=== PATIENT | male | born 1930 | race Two or more races ===

== ENCOUNTER 2016-04-25 19:28 | Inpatient (IN) | payer MEDICAID ==
[2016-04-25] MEDS ORDERED: Midazolam 1mg/ml 2 ml vial IV ONE ×2 (20:42→20:44)
[2016-04-25] MEDS ORDERED: Midazolam 1mg/ml 2 ml vial IV STA (20:51)
[2016-04-25] MEDS ORDERED: Sodium Chloride 0.9% 1,000 ML IV ONE ×3 (20:52→22:28)
--- NOTE | 2016-04-25 20:55 | ED Physician Chart ---
Chief Complaint/HPI - Patient Information Date Seen:: 04/25/16 Time Seen:: 20:53 Chief Complaint:: sob History of Present Illness:: [place] for sob and chest congestion/cough. [place] [facility] [place] my initial encounter and unable to determine if orineted due to sev sob/extremis. plans made for immediate intubation due to severe instability. bp 70 systolic. sao2 los 80-90s Allergies:: Allergies Allergy/AdvReac Type Severity Reaction Status Date / Time No Known Allergies Allergy Verified 12/09/15 13:56 Historian:: Medical Records Review:: Transfer documents Reviewed, Patient unable to respond Review of Systems - Review of Systems General/Constitutional: No fever, Other (pt in extremis...unable to obtain more detailed ros data at this time) Pulmonary: SOB, Cough, Sputum GI: No vomiting, No diarrhea G/U: No hematuria Neurological: Confusion Past Medical History - Past Medical History Past Medical History: Dementia, Other (pneumonia hx, anemia) Social History: Care Facility Surgical History: PEG/GTube Medication: Reviewed Family Medical History - Family Member Mother History Unknown: Yes Physical Exam - Physical Examination Other Gen/Cons comments:: severe distress. sev sob, not responding to noxious stiimuli or verbal ques. moves all extremities somewhat purposefully. gurgling chest noise aduible across room. Head: Atraumatic Eyes: Lids, conjuctiva normal, PERRL, EOMI Skin: Nl inspection, No rash, No skin lesions, No ecchymosis, Well hydrated, No lymphadenopathy ENMT: External ears, nose nl, Nasal exam nl, Lips, teeth, gums nl Neck: Nontender, Full ROM w/o pain, No JVD, No nuchal rigidity, No bruit, No mass, No stridor Other Respiratory comments:: audible congested in severe distress. Cardio Vascular: RRR, No murmur, gallop, rubs, NL S1 S2 GI: No tenderness/rebounding/guarding, No organomegaly, No hernia, Normal BS's, Nondistended, No mass/bruits, No McBurney tenderness Other GI comments:: g-tube site ok : No CVA tenderness Extremities: No tenderness or effusion, Full ROM, normal strength in all extremities, No edema, Normal digits & nails Neuro/Psych: Normal motor strength Other Neuro/Psych comments:: gross nrml mvt of extremities. not responsive due to sev resp distress. Misc: normal gait, Normal back, No paraspinal tenderness Labs/Radiology/EKG Results - Lab Results Results: Laboratory Tests 04/25/16 04/25/16 04/25/16 20:15 20:15 20:15 WBC 6.7 D RBC 3.97 Hgb 10.8 L Hct 33.4 L D MCV 84.0 MCH 27.1 MCHC Differential 32.3 RDW 18.0 Plt Count 120 L D MPV 16.5 Band Neutrophils % 10 Neutrophils (Manual) 69 Lymphocytes 12 L Monocytes 5 Eosinophils 4 Platelet Estimate ADEQUATE Platelet Morphology GIANT PLATELETS SEEN RBC Morph Micro Appear NORMAL Sodium 166 H* D Potassium 3.7 Chloride 128 H Carbon Dioxide 28.6 Anion Gap 13.1 BUN 112 H* Creatinine 3.1 H Est GFR ( Amer) TNP Est GFR (Non-Af Amer) TNP BUN/Creatinine Ratio 36.1 Glucose 241 H Whole Bld Lactic Acid 1.86 Calcium 8.1 L Total Bilirubin 0.6 AST 57 H ALT 33 Alkaline Phosphatase 125 H Troponin I Total Protein 8.5 H Albumin 2.9 L Globulin 5.6 Albumin/Globulin Ratio 0.5 L 04/25/16 20:15 WBC RBC Hgb Hct MCV MCH MCHC Differential RDW Plt Count MPV Band Neutrophils % Neutrophils (Manual) Lymphocytes Monocytes Eosinophils Platelet Estimate Platelet Morphology RBC Morph Micro Appear Sodium Potassium Chloride Carbon Dioxide Anion Gap BUN Creatinine Est GFR ( Amer) Est GFR (Non-Af Amer) BUN/Creatinine Ratio Glucose Whole Bld Lactic Acid Calcium Total Bilirubin AST ALT Alkaline Phosphatase Troponin I 0.10 H* D Total Protein Albumin Globulin Albumin/Globulin Ratio - Radiology Results Results: cxr- ett ok very near juan antonio. ca aorta, some infiltrate at rt mid/base lung - EKG Interpretations EKG Time:: 22:00 Rhythm: nsr 85 [place]: -19 Rate: 85 Comments:: nsr, wnl..no st/t wave changes Assessment - Assessment Critical Care Time: 80 Excludes all billable procedures: Yes This condition life threatening/high prob of deterioration: Yes - Procedures Procedures:: intubation for sev resp distress- 7.5 ett suction applied to peg tube prior to premedication. versed 1 mg for agitation/resistance passed ett by direct laryngoscopy w 4 mac blade w good visualization of epiglottis. placement confirmed by auscultation, co2 return and sao2 improvement. cxr ok at 9;05p no emesis witnessed. mouth mucosa noted very dry. Informed Consent: Procedure/risk/benefits explained by MD: No ED Septic Shock - . Is Septic Shock (SBP<90, OR Lactate>4 mmol\L) present?: Yes - <6hrs of presentation: Vital Signs: bp low 70s, sao2 low 70-80s Assessment of Lungs: Rhonchi Assessment of Heart: RRR EKG Interpretation: NSR, No ST elevation, No ST depression, No Ectopy Capillary refill evaluation: Capillary refill < 2 secs Skin Exam: Dry Comment: pt intubated due to extreme distress. Reassessment (Disposition) - Reassessment Reassessment:: case dw Dr Weiss(seasoner Dr lutz) briefly who says this pt belongs to Dr Wilson...prior record show 2 admits by him. case D/W Dr Gipson who says this is NOT his Primary pt and he says on-call should admit dw Dr Weiss will admit (10;20p) Reassessment Condition:: Improved - Diagnosis Diagnosis:: 1 pneumonia 2 sepsis 3 dehydration 4 elevated troponin - Patient Disposition Admitted to:: ICU Condition at Disposition:: Improved
[2016-04-25 20:56] LABS: HEMOGLOBIN 10.8 gm/dL (12.6-17.4); MEAN CORPUSCULAR HEMOGLOBIN 27.1 pg (27.0-31.0); MEAN CORPUSCULAR HGB CONC 32.3 pg (28.0-36.0); MEAN PLATELET VOLUME 16.5 fl; RED BLOOD COUNT 3.97 Mil/cmm (3.80-5.80)
[2016-04-25 21:01] LABS: ALB/GLOB RATIO 0.5 (1.0-1.8); ALKALINE PHOSPHATASE 125 U/L (34-104); ANION GAP 13.1 (7.0-16.0); BILIRUBIN,TOTAL 0.6 mg/dL (0.3-1.0); BUN/CREATININE RATIO 36.1; CALCIUM SERUM 8.1 mg/dL (8.6-10.3); CARBON DIOXIDE 28.6 mEq/L (21.0-31.0); CHLORIDE 128 mEq/L (98-107); CREATININE - SERUM 3.1 mg/dL (0.7-1.3); GLUCOSE 241 mg/dL (70-105); POTASSIUM SERUM 3.7 mEq/L (3.5-5.1); SGOT 57 U/L (13-39); SGPT/ALT 33 U/L (7-52)
[2016-04-25] MEDS ORDERED: Albuterol/Ipratropium Neb 3 ML AERS HHN ONE ×2 (21:09→22:06)
[2016-04-25] MEDS ORDERED: Levofloxacin 500mg/100mL 500 MG/100 ML BAG IV ONE ×2 (21:10→21:29)
[2016-04-25 21:18] LABS: SODIUM SERUM 166 mEq/L (136-145)
[2016-04-25 21:19] LABS: BUN - UREA NITROGEN 112 mg/dL (7-25)
[2016-04-25 21:23] LABS: HEMATOCRIT 33.4 % (39.0-49.0); PLATELET COUNT 120 Th/cmm (150-400); WHITE BLOOD COUNT 6.7 Th/cmm (4.8-10.8)
[2016-04-25 21:29] LABS: BAND NEUTROPHILE 10 % (0-10); EOSINOPHIL 4 % (0-5); NEUTROPHILS 69 % (40-80); PLATELET ESTIMATE ADEQUATE (NORMAL); PLATELET MORPHOLOGY GIANT PLATELETS SEEN (NORMAL); TOTAL CELLS COUNTED 100
[2016-04-25 22:08] LABS: URINE BILIRUBIN NEGATIVE (NEGATIVE); URINE BLOOD NEGATIVE (NEGATIVE); URINE COLOR ORANGE; URINE GLUCOSE (UA) NEGATIVE (NEGATIVE); URINE KETONE 15 mg/dL (NEGATIVE); URINE PROTEIN 30 mg/dL (NEGATIVE)
[2016-04-25 22:09] LABS: URINE AMORPHOUS SEDIMENT MODERATE URATES (NONE SEEN); URINE BACTERIA FEW /hpf (NONE SEEN); URINE EPITHELIAL CELLS FEW /lpf (FEW); URINE RBC 0-2 /hpf (0-5); URINE URIC ACID CRYSTALS FEW /hpf (NONE SEEN)
[2016-04-25 22:23] LABS: ABG SOURCE ARTERIAL; BE(B) 4.8 mmol/L (-3.0-3.0); HCO3 31.6 mmol/L (20.0-26.0); pH 7.36 (7.35-7.45)
[2016-04-25 22:24] LABS: ALLEN TEST Positive; FIO2 100; MECH RATE 12; MECH VT 500
[2016-04-25] MEDS ORDERED: D5-0.45NS 1,000 ML IV SCH (22:30)
[2016-04-26 00:20] VITALS: BP 100/46
[2016-04-26] MEDS ORDERED: Albuterol/Ipratropium Neb 3 ML AERS HHN SCH (01:00)
[2016-04-26] MEDS ORDERED: Piperacillin Sodium/Tazobact 2.25 gm Vial IV ONE (01:24)
[2016-04-26 05:16] LABS: ABG SOURCE ARTERIAL; ALLEN TEST Positive; BE(B) 3.8 mmol/L (-3.0-3.0); FIO2 60; HCO3 29.2 mmol/L (20.0-26.0); MECH RATE 14; MECH VT 500; pH 7.41 (7.35-7.45)
[2016-04-26 07:00] LABS: % BASOPHILS 0.1 % (0.0-2.0); % EOSINOPHILS 4.8 % (0.0-5.0); % LYMPHOCYTES 11.2 % (20.0-50.0); % MONOCYTES 3.5 % (2.0-10.0); % NEUTROPHILS 80.4 % (40.0-80.0); HEMOGLOBIN 9.2 gm/dL (12.6-17.4); MEAN CELL VOLUME 85.1 fl (80-99); MEAN CORPUSCULAR HEMOGLOBIN 27.4 pg (27.0-31.0); MEAN CORPUSCULAR HGB CONC 32.2 pg (28.0-36.0); MEAN PLATELET VOLUME 14.5 fl; NEUTROPHILE ABSOLUTE 5.5 Th/cmm (1.8-8.0); RED BLOOD COUNT 3.35 Mil/cmm (3.80-5.80); WHITE BLOOD COUNT 6.8 Th/cmm (4.8-10.8)
[2016-04-26 07:12] LABS: INR 1.02 (0.5-1.4); PROTHROMBIN TIME (TEST) 10.1 SECONDS (9.5-11.5)
[2016-04-26 07:14] LABS: HEMATOCRIT 28.5 % (39.0-49.0)
[2016-04-26 07:18] LABS: ALB/GLOB RATIO 0.6 (1.0-1.8); ALKALINE PHOSPHATASE 102 U/L (34-104); ANION GAP 12.8 (7.0-16.0); BILIRUBIN,TOTAL 0.6 mg/dL (0.3-1.0); BUN/CREATININE RATIO 37.2; CALCIUM SERUM 7.6 mg/dL (8.6-10.3); CHLORIDE 129 mEq/L (98-107); CREATININE - SERUM 2.9 mg/dL (0.7-1.3); GLUCOSE 154 mg/dL (70-105); POTASSIUM SERUM 3.8 mEq/L (3.5-5.1); SGOT 62 U/L (13-39); SGPT/ALT 33 U/L (7-52)
[2016-04-26 07:42] LABS: SODIUM SERUM 167 mEq/L (136-145)
[2016-04-26 07:43] LABS: BUN - UREA NITROGEN 108 mg/dL (7-25)
[2016-04-26 08:05] LABS: PLATELET COUNT 96 Th/cmm (150-400)
[2016-04-26] MEDS: INSULIN ASPART SLIDING SCALE 100 UNITS/ML UNIT SUBQ SCH ×4 (08:15→21:30)
[2016-04-26] MEDS: Dextrose 5% 1,000 ML IV SCH ×2 (09:15→22:37)
[2016-04-26] MEDS ORDERED: Sodium Chloride 0.9% 1,000 ML IV ONE (09:16)
[2016-04-26] MEDS: Enoxaparin 30 mg/0.3 mL 0.3mL Syr SUBQ SCH (09:19)
--- NOTE | 2016-04-26 09:41 | Diagnostic Imaging Report ---
CHEST X-RAY: AP view INDICATION: Congestion COMPARISON: Chest x-ray 12/14/2015 FINDINGS: ET tube is seen with tip just above the juan antonio point towards the right mainstem bronchus. Low lung volumes are seen with left effusion and left lung infiltrates. Heart size cannot be well assessed. Atherosclerosis is noted. IMPRESSION: ET tube just above the juan antonio pointing toward the right mainstem bronchus. Recommend pullback Low lung volumes with left effusion and left lung infiltrates. Please refer to follow-up x-ray for further details.
[2016-04-26] MEDS ORDERED: VTE Chemical Prophylaxis Screen/Admission MC PRN (09:55)
[2016-04-26] MEDS: Albumin 5% 12.5gm/250mL 12.5 GM/250 ML BTL IV ONE ×2 (10:30→15:00)
[2016-04-26 10:47] LABS: PLATELET COUNT-DIC PANEL 96 Th/cmm (150-400)
--- NOTE | 2016-04-26 11:14 | Diagnostic Imaging Report ---
CHEST X-RAY: AP view INDICATION: Pneumonia COMPARISON: Chest x-ray 04/25/2016 FINDINGS: ET tube is again seen at the level of the juan antonio pointing toward the right mainstem bronchus. Low lung bones are seen with left effusion and left lung infiltrates. IMPRESSION: Unchanged position of the ET tube at the level of the juan antonio pointing toward the right mainstem bronchus. Recommend 2 to 3 cm pullback. Left effusion and left lung infiltrates. Results were administered into made to the referring team on 04/26/2016 at 9:30 AM.
--- NOTE | 2016-04-26 11:18 | History & Physical ---
PATIENT IDENTIFICATION: An 85-year-old male. HISTORY SOURCE: Reviewing the chart, talking to the Emergency Room Servando CHIEF COMPLAINT: Brought in to the Emergency Room for cough, congestion, and respiratory distress. HISTORY OF PRESENT ILLNESS: An 85-year-old [place] male who is a resident of [facility] has a diagnosis of dementia, history of gastrostomy tube placement with severe, dysphagia, history of CVA, history of osteoarthritis. The patient had previous admissions at [facility] for a diagnosis of GI bleed, pneumonia, and dehydration. The patient has been treated in the past for his underlying illness. He was brought into the Emergency Room by paramedics for evaluation of cough, congestion and shortness of breath. When the patient arrived in the Emergency Room, he was diagnosed to have hyponatremia, acute respiratory distress with significant hypotension. The patient was resuscitated, intubated and admitted to the hospital for further treatment. The patient does not provide any history due to his current conditions along with his medical history. PAST MEDICAL HISTORY: Remarkable for: 1. Peripheral vascular disease. 2. Anemia. 3. Dementia. 4. Gastrostomy tube placement for dysphagia. 5. History of recurrent pneumonia. 6. Hypertension. MEDICATIONS AT HOME: Taking iron tablets and ferrous sulfate. ALLERGIES: The patient is not allergic to any medications. SOCIAL HISTORY: [facility] a [facility]. FAMILY MEDICAL HISTORY: Unavailable. REVIEW OF SYSTEMS: Unable to obtain. PHYSICAL EXAMINATION: GENERAL: The patient is alert, lying in the bed, responds to painful stimuli, open his eyes upon evaluation. VITAL SIGNS: Currently, temperature 97.0, pulse 68, respiratory rate 16, blood pressure is reported currently 105/58. In the Emergency Room upon arrival, systolic was 70 and after hydration, it went up to 90s. HEENT: Normocephalic, atraumatic. Bilateral conjunctival congestion noted. Oropharynx is dry and coated. Endotracheal tube noted. Poor oral hygiene noted. No facial asymmetry. NECK: Supple, no JVD or lymphadenopathy. HEART: Both heart sounds are regular. CHEST AND LUNGS: Equal in expansion with expiratory wheezing throughout. ABDOMEN: Soft. No guarding, no rigidity. Gastrostomy tube noted. Bowel sounds are present. EXTREMITIES: Contracture of upper and lower extremities noted. Deep tissue injury and stage II pressure ulcers on the foot noted. NEUROLOGIC: Alert, awake and does not follow any commands. AVAILABLE DIAGNOSTIC DATA: Performed in the Emergency Room remarkable for troponin of 0.1. Urinalysis remarkable for ketones, so positive at 1.03, protein of 30, wbc ____. White count of 6.7, hemoglobin 10.8, platelet count of 120, 12% ____. Sodium 166, potassium 3.7, chloride 128, CO2 28.6, BUN and creatinine is ____ and 3.1, blood sugar of 241, alkaline phosphatase of 125, lactic acid of 1.86. D-dimer of 3810. ABG, pH of 7.36, pCO2 of ____, pO2 of 69, O2 sat of 93% on assist control mode. Chest x-ray has an infiltrate on the right lower lobe. EKG, no ST-T changes representing acute ischemia. CLINICAL IMPRESSION: 1. Hypernatremia secondary to dehydration. 2. Acute respiratory failure, required endotracheal intervention and mechanical ventilation. 3. Most likely aspiration versus penitentiary acquired pneumonia. 4. Acute kidney injury. 5. Dementia. 6. Severe dysphagia required gastrostomy tube placement. 7. Hypotension, most likely secondary to volume depletion. 8. 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 9. Protein calorie malnutrition. 10. ICU care. PLAN: 1. Admit this patient to ICU. 2. Aggressive hydration. 3. Pulmonary consultation. 4. Nephrology consultation 5. ID consultations. 6. Broad spectrum antibiotic. 7. Blood cultures, sputum Gram stain C and S. 8. DIC panel. 9. GI and DVT prophylaxis 10. Follow up labs. 11. Free water. 12. D5W to correct hypernatremia. 13. Follow up x-rays and lab. 14. Wait for followup results and give appropriate treatment. 15. Follow audit consultant recommendations. 16. Wound care nurse to see the patient for deep tissue injuries and stage II ulcers on the feet. 17. Obtain lower extremity arterial Doppler studies to assess the arterial status. 18. The patient does have slightly elevated troponin, so obtain cardiac enzymes and EKG as well. 19. Tube feeding. 20. Overall prognosis is guarded. Care plan has been reviewed and discussed with RN as well. JOB# [id number]
[2016-04-26] MEDS ORDERED: Albumin 5% 12.5gm/250mL 12.5 GM/250 ML BTL IV ONE ×2 (11:30→14:00)
--- NOTE | 2016-04-26 11:38 | Diagnostic Imaging Report ---
Renal ultrasound HISTORY: Renal failure COMPARISON: Abdomen ultrasound on 05/06/2015 Technique: Sonography of the kidneys and urinary bladder was performed in multiple planes. FINDINGS: Exam is limited due to body habitus. The right kidney measures 10.3 x 8.1 cm. A right renal cyst is seen at the midpole measuring 4.2 cm. No hydronephrosis. The left kidney measures 10.5 x 6.2 cm. An inferior pole left renal cyst is noted measuring 3.9 cm. No hydronephrosis. The urinary bladder is not visualized and may be collapsed. The prostate gland was also not visualized. IMPRESSION: Limited exam due to body habitus No evidence of hydronephrosis. Bilateral renal cysts.
--- NOTE | 2016-04-26 11:41 | Diagnostic Imaging Report ---
Bilateral lower extremity arterial Doppler study HISTORY: Peripheral vascular disease COMPARISON: None Technique: Longitudinal and transverse sonographic images of the bilateral lower extremity arteries were obtained with doppler analysis. FINDINGS: Exam of the right side demonstrates diffuse atherosclerotic vascular disease. There is triphasic waveform within the right common femoral, right proximal and mid superficial femoral arteries. There is biphasic waveform of the right distal superficial femoral artery. There is monophasic waveform of the right popliteal, tibialis anterior, and tibialis posterior artery. The right dorsalis pedis artery was not visualized. Right ankle-brachial index is 1.1. Exam of the left side demonstrates diffuse atherosclerotic vascular disease. There is triphasic waveform within the left common femoral, left proximal and mid superficial femoral arteries. There is biphasic waveform within the left distal superficial femoral artery, popliteal artery, tibialis anterior and tibialis posterior arteries. The left dorsalis pedis is not visualized. Left ankle-brachial index is 1.1. IMPRESSION: Findings hr representative of diffuse generalized atherosclerotic vascular disease, greatest distally. There is nonvisualization of the bilateral dorsalis pedis arteries. Please correlate clinically. If indicated CT angiography of the lower extremities may also be obtained.
--- NOTE | 2016-04-26 14:30 | Infectious Disease Prog Note ---
Infectious Disease Subjective - Review of Systems Service Date: 04/26/16 Subjective: [id number] Infectious Disease Objective - Results Result Diagrams: 04/26/16 06:44 04/26/16 06:44 Recent Labs: Laboratory Last Values WBC 6.8 Th/cmm (4.8-10.8) 04/26/16 06:44 RBC 3.35 Mil/cmm (3.80-5.80) L 04/26/16 06:44 Hgb 9.2 gm/dL (12.6-17.4) L 04/26/16 06:44 Hct 28.5 % (39.0-49.0) L D 04/26/16 06:44 MCV 85.1 fl (80-99) 04/26/16 06:44 MCH 27.4 pg (27.0-31.0) 04/26/16 06:44 MCHC Differential 32.2 pg (28.0-36.0) 04/26/16 06:44 RDW 18.0 % (11.5-20.0) 04/26/16 06:44 Plt Count 96 Th/cmm (150-400) L 04/26/16 06:44 MPV 14.5 fl 04/26/16 06:44 Neutrophils % 80.4 % (40.0-80.0) H 04/26/16 06:44 Band Neutrophils % 10 % (0-10) 04/25/16 20:15 Lymphocytes % 11.2 % (20.0-50.0) L 04/26/16 06:44 Monocytes % 3.5 % (2.0-10.0) 04/26/16 06:44 Eosinophils % 4.8 % (0.0-5.0) 04/26/16 06:44 Basophils % 0.1 % (0.0-2.0) 04/26/16 06:44 Neutrophils (Manual) 69 % (40-80) 04/25/16 20:15 Lymphocytes 12 % (20-50) L 04/25/16 20:15 Monocytes 5 % (2-10) 04/25/16 20:15 Eosinophils 4 % (0-5) 04/25/16 20:15 Platelet Estimate ADEQUATE (NORMAL) 04/25/16 20:15 Platelet Morphology GIANT PLATELETS SEEN (NORMAL) 04/25/16 20:15 RBC Morph Micro Appear NORMAL (NORMAL) 04/25/16 20:15 Plt Count 96 Th/cmm (150-400) L 04/26/16 06:44 PT 10.1 SECONDS (9.5-11.5) 04/26/16 06:44 INR 1.02 (0.5-1.4) 04/26/16 06:44 PTT (Actin FS) 27.2 SECONDS (26.0-38.0) 04/26/16 06:44 Fibrinogen 464.0 mg/dL (200.0-400.0) H 04/26/16 06:44 D-Dimer > 5000 ng/mL (100-400) H 04/26/16 06:44 Specimen Source ARTERIAL 04/26/16 04:52 Sample Site RB 04/26/16 04:52 pH 7.41 (7.35-7.45) 04/26/16 04:52 pCO2 46.0 mmHg (35.0-45.0) H 04/26/16 04:52 pO2 141.0 mmHg (80.0-100.0) H 04/26/16 04:52 HCO3 29.2 mmol/L (20.0-26.0) H 04/26/16 04:52 Base Excess 3.8 mmol/L (-3.0-3.0) H 04/26/16 04:52 O2 Saturation 99.0 % (92.0-100.0) 04/26/16 04:52 Paul Test Positive 04/26/16 04:52 Vent Rate 14 04/26/16 04:52 Inspired O2 60 04/26/16 04:52 Tidal Volume 500 04/26/16 04:52 PEEP 0 04/26/16 04:52 Pressure (ins/psv/peep) N/A 04/26/16 04:52 Critical Value MMIRANDA 04/26/16 04:52 Sodium 167 mEq/L (136-145) H* 04/26/16 06:44 Potassium 3.8 mEq/L (3.5-5.1) 04/26/16 06:44 Chloride 129 mEq/L (98-107) H 04/26/16 06:44 Carbon Dioxide 29.0 mEq/L (21.0-31.0) 04/26/16 06:44 Anion Gap 12.8 (7.0-16.0) 04/26/16 06:44 BUN 108 mg/dL (7-25) H* 04/26/16 06:44 Creatinine 2.9 mg/dL (0.7-1.3) H 04/26/16 06:44 Est GFR ( Amer) TNP 04/26/16 06:44 Est GFR (Non-Af Amer) TNP 04/26/16 06:44 BUN/Creatinine Ratio 37.2 04/26/16 06:44 Glucose 154 mg/dL (70-105) H 04/26/16 06:44 POC Glucose 121 MG/DL (70 - 105) H 04/26/16 07:08 Hemoglobin A1c % 6.0 % (4.0-6.0) 04/25/16 20:15 Whole Bld Lactic Acid 1.86 mmol/L (0.60-2.00) 04/25/16 20:15 Calcium 7.6 mg/dL (8.6-10.3) L 04/26/16 06:44 Magnesium 3.0 mg/dL (1.9-2.7) H 04/26/16 06:44 Total Bilirubin 0.6 mg/dL (0.3-1.0) 04/26/16 06:44 AST 62 U/L (13-39) H 04/26/16 06:44 ALT 33 U/L (7-52) 04/26/16 06:44 Alkaline Phosphatase 102 U/L (34-104) 04/26/16 06:44 Troponin I 0.09 ng/mL (0.01-0.05) H* 04/26/16 06:44 Total Protein 7.5 gm/dL (6.0-8.3) 04/26/16 06:44 Albumin 2.7 gm/dL (4.2-5.5) L 04/26/16 06:44 Globulin 4.8 gm/dL 04/26/16 06:44 Albumin/Globulin Ratio 0.6 (1.0-1.8) L 04/26/16 06:44 Urine Source CATH 04/25/16 20:55 Urine Color ORANGE 04/25/16 20:55 Urine Clarity HAZY (CLEAR) 04/25/16 20:55 Urine pH 5.0 04/25/16 20:55 Ur Specific [place] 1.89566 (1.005-1.030) H 04/25/16 20:55 Urine Protein 30 mg/dL (NEGATIVE) H 04/25/16 20:55 Urine Glucose (UA) NEGATIVE mg/dL (NEGATIVE) 04/25/16 20:55 Urine Ketones 15 mg/dL (NEGATIVE) H 04/25/16 20:55 Urine Blood NEGATIVE (NEGATIVE) 04/25/16 20:55 Urine Nitrate NEGATIVE (NEGATIVE) 04/25/16 20:55 Urine Bilirubin NEGATIVE (NEGATIVE) 04/25/16 20:55 Urine Urobilinogen 1.0 E.U./dL (0.2 - 1.0) 04/25/16 20:55 Ur Leukocyte Esterase NEGATIVE (NEGATIVE) 04/25/16 20:55 Urine RBC 0-2 /hpf (0-5) H 04/25/16 20:55 Urine WBC 2-5 /hpf (0-5) H 04/25/16 20:55 Ur Epithelial Cells FEW /lpf (FEW) 04/25/16 20:55 Uric Acid Crystals FEW /hpf (NONE SEEN) 04/25/16 20:55 Amorphous Sediment MODERATE URATES (NONE SEEN) 04/25/16 20:55 Urine Bacteria FEW /hpf (NONE SEEN) 04/25/16 20:55 - Physical Exam Vitals and I&O: Vital Signs Temp 97.0 F 04/26/16 07:49 Pulse 73 04/26/16 13:32 Resp 16 04/26/16 07:49 BP 91/46 04/26/16 07:49 Pulse Ox 100 04/26/16 13:32 Intake & Output 04/25/16 04/26/16 04/26/16 18:59 06:59 18:59 Intake Total 380 50 Output Total 150 Balance 230 50 Weight (lbs) 72.121 kg Intake: Intake, IV Amount 380 50 Piperacillin Sodium/ 50 50 Tazobact 2.25 gm In Sodium Chloride 0.9% 50 ml @ 100 mls/hr IV Q8HR [facility] Rx#:[id number] Oral 0 Tube Feeding 0 Output: Urine 150 Other: # Bowel Movements 2 Stool Characteristics Brown Active Medications: Current Medications Albuterol/Ipratropium (Duoneb Neb) 3 ml HHN Q2H PRN PRN Reason: Respiratory Distress Stop: 06/24/16 22:45 Enoxaparin Sodium (Lovenox) 30 mg SUBQ DAILY JJ Stop: 06/25/16 08:59 Last Admin: 04/26/16 09:19 Dose: 30 mg Piperacillin Sod/Tazobactam (Sod 2.25 gm/ Sodium Chloride) 50 mls @ 100 mls/hr IV Q8HR JJ Stop: 06/25/16 04:59 Last Infusion: 04/26/16 12:40 Dose: Infused Dextrose (D5w) 1,000 mls @ 100 mls/hr IV .Q10H JJ Stop: 06/25/16 08:44 Last Admin: 04/26/16 09:15 Dose: 100 mls/hr Albumin Human (Albutein 5%) 12.5 gm in 250 mls @ 62.5 mls/hr IV X1 ONE Stop: 04/26/16 15:29 Last Admin: 04/26/16 11:59 Dose: Not Given Albumin Human (Albutein 5%) 12.5 gm in 250 mls @ 62.5 mls/hr IV Q8H [facility] Stop: 04/27/16 07:00 Insulin Aspart (Novolog Insulin Sliding Scale) 0 units SUBQ ACHS JJ PRN Reason: Protocol Stop: 06/25/16 07:29 Last Admin: 04/26/16 08:15 Dose: Not Given Lorazepam (Ativan) 2 mg IVP Q4HR PRN; Protocol PRN Reason: Agitation Stop: 06/24/16 22:38 Miscellaneous (Clinical Monitoring) 1 [facility] PRN PRN PRN Reason: RENAL DOSING Stop: 06/25/16 07:52 Miscellaneous (Vte Chemical Prophylaxis Screen/ Admission) 1 [facility] PRN PRN PRN Reason: PROTOCOL Stop: 06/25/16 09:54 Pantoprazole Sodium (Protonix) 40 mg IVP DAILY JJ Stop: 06/25/16 08:59 Last Admin: 04/26/16 09:10 Dose: 40 mg - Procedures Procedures: Procedures Procedure Code Date BLOOD TRANSFUSION SERVICE 15008 05/04/15 TRANSFUSE NONAUT RED BLOOD CELLS IN PERIPH VEIN, PERC 04907W1 05/04/15 Infectious Disease Assmt/Plan - Problem List Patient Problems: All Active Problems Anemia (Acute) D64.9 Dehydration (Acute) E86.0 Hyperosmolality and hypernatremia (Acute) E87.0
[2016-04-26] MEDS: Albumin 5% 12.5gm/250mL 12.5 GM/250 ML BTL IV SCH (15:00)
--- NOTE | 2016-04-26 15:22 | Diagnostic Imaging Report ---
CHEST X-RAY: AP view INDICATION: Intubation COMPARISON: Chest x-ray earlier the same day at 8:12 AM FINDINGS: ET tube is been pulled back with tip 1.8 cm above the Annamarie. Left effusion is seen with hazy left lung infiltrates and low lung volumes. IMPRESSION: Interval retraction of the ET-tube with tip now 1.8 cm above the Annamarie. Left effusion and hazy left lung infiltrates.
[2016-04-26] MEDS ORDERED: Albumin 5% 12.5gm/250mL 12.5 GM/250 ML BTL IV SCH (19:30)
--- NOTE | 2016-04-26 21:19 | Consultation ---
LOCATION: [facility], ICU bed #6. ATTENDING PHYSICIAN: Dr. Tod Weiss. I thank you very much Dr. Weiss for the consultation. IDENTIFICATION: The patient is intubated, history has been taken from the old chart and the Emergency Room physician notes and by reviewing the correction record. HISTORY OF PRESENT ILLNESS: This is an 85-year-old male patient who is resident of correction of [facility]. The patient is a known care of CVA with dysphagia, history of hypertension and anemia. The patient is getting feeding though G-tube. The patient was brought in with complaint of respiratory distress. The patient in the Emergency Room developed respiratory failure and required intubation. The patient subsequently was found to have pneumonia, sepsis, dehydration and acute renal failure. The patient has been transferred to ICU. Renal consultation has been requested. Since the patient has been here, he is tolerating tube feeding well. There is no history of vomiting, constipation or diarrhea. The patient does have some wound on the left lower extremity with some dressing. The patient's Mitchell catheter has been placed in with very dark-colored urine. G-tube has no residual volume. There is no history of any seizures, no history of high fever, no history of syncope, no history of anuria or hematuria. No history of palpitation or severe prolonged hypotension. PAST MEDICAL AND SURGICAL HISTORY: As stated above. History of peripheral vascular disease, anemia, G-tube placement, dysphagia, CVA, probable CKD baseline, now the patient has pneumonia and respiratory failure. PHYSICAL EXAMINATION: GENERAL: This is an 85-year-old male patient on a respirator. VITAL SIGNS: Blood pressure 91/46, heart rate 68, respiration rate 16 and blood pressure 91/46. The patient's total intake so far since last night is 1330. Urine output is 150. HEENT: Head is normocephalic and atraumatic. Eyes: Sclerae is nonicteric. Conjunctivae is pale. Pupils are reactive. NECK: Jugular venous pressure nondistended. LUNGS: Good air entry. Rhonchi and rales both the sides. Right side more than the left. HEART: Regular. ____ fifth intercostal space. ABDOMEN: Soft. G-tube site is without any bleeding or discharge. Bowel sounds are present and not distended. EXTREMITIES: No edema. Skin is dry. Dorsalis pedis diminished on both the sides. Left foot in a dressing for the wound. SIGNIFICANT LABORATORY DATA: WBC 6.7, hemoglobin 10.8 and 10 bands. A pH 7.3, pCO2 of 56, pO2 of 69, bicarbonate of 31, sodium 166, potassium 3.7, chloride 128, CO2 of 28, BUN 112, creatinine 3.1, blood sugar 241 and calcium 8.1. AST 57. Urinalysis: A pH 1.03. Urine nitrite negative, few bacteria and no cast. IMAGING STUDIES: Chest x-ray done yesterday, left pleural effusion and left lung infiltrate. No pneumothorax. No CHF. ET tube present. ASSESSMENT: 1. This 85-year-old male patient with acute kidney injury. 2. Water deficit. 3. Anemia. 4. Peripheral vascular disease. 5. Hypotension. 6. G-tube. 7. History of CVA with dysphagia. 8. Rule out CKD underlying water deficit, anemia. 9. Hyperglycemia. 10. Respiratory failure. 11. Pneumonia. 12. Elevated LFT. PLAN: Start the patient on water in a G-tube, albumin IV for hypotension, continue D5 half normal saline IV, check CMP, phosphorous and magnesium. Tomorrow morning kidney ultrasound has been ordered. The patient is currently undergoing arterial Doppler of lower extremities. Adjust the antibiotic dose for renal failure. I will follow this patient with you very closely. JOB# [id number]
--- NOTE | 2016-04-26 22:13 | Consultation ---
REFERRING PHYSICIAN: Dr. Weiss. REASON FOR CONSULTATION: Sepsis. HISTORY OF PRESENT ILLNESS: The patient is an 85-year-old male with a past medical history of dementia, pneumonia, anemia, G-tube placement for dysphagia, history of CVA with aphasia, history of osteoarthritis, brought to the ER for cough, congestion and respiratory distress. On initial evaluation, the patient's temperature was 98.9 degrees Fahrenheit and WBC count is 6700. The patient's blood pressure was on lower side, 84/48. Fluid boluses were given and patient was found to be in acute respiratory distress also. The patient was intubated in the ER and put on ventilator support. The patient is alert and awake. The patient was started on Zosyn and Levaquin yesterday and ID consult was called for further antibiotic management. The patient remains hypotensive. PAST MEDICAL HISTORY: Includes peripheral vascular disease, anemia, dementia, dysphagia, G-tube placement, history of recurrent pneumonia, ____, CVA. ALLERGIES: NKDA. MEDICATIONS: See medication reconciliation sheet. Antibiotic lao, the patient is on Zosyn and Levaquin. SOCIAL HISTORY: The patient lives at nursing facility. No history of smoking, alcohol or drug use. FAMILY HISTORY: Not available. REVIEW OF SYSTEMS: Unable to obtain, but so far, the patient has no fever, no chills. The patient had a cough and congestion with hypotension with respiratory distress requiring intubation and ventilator support. PHYSICAL EXAMINATION: CURRENT VITAL SIGNS: Shows temperature is 97 degrees Fahrenheit, pulse 73, respirations 16, blood pressure is 91/46. GENERAL: The patient is comfortable, lying in the bed. Intubated orally on the ventilator support. HEENT: Head is normocephalic, atraumatic. Oral cavity moist. [place] tongue. Eyes: Pallor is present, no icterus. Pupils PERRLA, EOMI. NECK: Supple, no JVD, no carotid bruit. Trachea in midline. CHEST: Bilateral breath sounds. No crackles, no wheezing. HEART: S1, S2 within normal limits. Regular rhythm. No murmur, no gallop. ABDOMEN: Soft, nontender, nondistended. Bowel sounds present. PEG site is clear. EXTREMITIES: No cyanosis, no clubbing, no edema. ____ present. NEUROLOGIC: Alert and awake. Follows the commands. LABORATORY DATA: Current lab shows WBC count is 6800, hemoglobin 9.2, hematocrit 28.5, platelets are 96,000, neutrophils 80%. Sodium is 167, potassium 3.8, chloride 129, bicarb is 29, BUN is 108, creatinine 2.9, glucose is 154. Troponin 0.09. Urinalysis showed rbc's 0-2, wbc's 2-5 and bacteria are few. IMPRESSION: 1.Hypotension, suspect sepsis. 2.Suspect pneumonia. 3.Acute renal failure likely secondary to dehydration. 4.Increased respiratory failure, on ventilator. 5.Anemia. 6.Dementia. 7.Cerebrovascular accident. 8.Hypernatremia. 9.Thrombocytopenia. 10.Foot ulcers. 11.Protein calorie malnutrition. 12.Contracture of lower extremity. RECOMMENDATIONS: Continue Zosyn, monitor platelet count tomorrow. If platelet count drops further, we will change antibiotic to cefepime or antibiotic depending on the available culture reports. Follow up sepsis workup. Thank you, Dr. Weiss, for involving me in taking care of this patient. JOB# [id number]
[2016-04-27] MEDS: Albumin 5% 12.5gm/250mL 12.5 GM/250 ML BTL IV SCH ×2 (00:09→08:35)
--- NOTE | 2016-04-27 00:30 | Admit Criteria Form ---
Admit Criteria Forms - Admit Criteria Diagnosis: RESPIRATORY FAILURE [facility] Clinical Indications for Admission to Inpatient Care (Place 'X' for any and all applicable criteria): Hospital admission is needed for appropriate care of the patient because of acute respiratory failure or insufficiency as indicated by ANY ONE of the following(1)(2)(3)(4)(5)(6)(7)(8): [ X]I. Mechanical ventilation needed (acute invasive or noninvasive) [ ]II. Severe ventilation deficit as indicated by ANY ONE of the following (9) [ ]a) Respiratory acidosis (pH less than 7.32 and partial pressure of carbon dioxide greater than 40 mm Hg (5.3 kPa)) [ ]b) Partial pressure of carbon dioxide greater than 44 mm Hg (5.9 kPa ) (new) [ ]c) Airflow measurements less than 25% of predicted (eg, peak expiratory flow rate less than 100 L/minute) [ ]d) Forced vital capacity less than 15 mL/kg of ideal body weight, or 50% decrease in vital capacity from baseline [ ]III. Noncardiac pulmonary edema not resolving with rapid emergency treatment (8) [ ]IV. Severe respiratory distress as indicated by ANY ONE of the following: [ ]a) Severe tachypnea (respiratory rate greater than 30, greater than 45 for 6-month-old, greater than 60 for ) [ ]b) Severe hypoxemia (partial pressure of oxygen less than 50 mm Hg ( 6.7 kPa) on greater than 50% oxygen or partial pressure of oxygen to FIO2 ratio less than 200) [ ]c) Mental status deterioration from respiratory disease [ ]V. Airway obstruction or inadequate protection [A](10)(11) The original [email or web address] content created by [email or web address] has been revised. The portions of the content which have been revised are identified through the use of italic text or in bold, and [email or web address] has neither reviewed nor approved the modified material. All other unmodified content is copyright [email or web address]. Please see references footnoted in the original [employer] edition 2016 Admit Criteria Met?: Yes
[2016-04-27 05:07] LABS: MEAN CELL VOLUME 83.6 fl (80-99); MEAN CORPUSCULAR HEMOGLOBIN 27.3 pg (27.0-31.0); MEAN CORPUSCULAR HGB CONC 32.6 pg (28.0-36.0); MEAN PLATELET VOLUME 11.3 fl; RED BLOOD COUNT 2.85 Mil/cmm (3.80-5.80); RED CELL DISTRIBUTION WIDTH 17.9 % (11.5-20.0); WHITE BLOOD COUNT 4.4 Th/cmm (4.8-10.8)
[2016-04-27 05:47] LABS: ALB/GLOB RATIO 0.7 (1.0-1.8); ALKALINE PHOSPHATASE 82 U/L (34-104); ANION GAP 12.7 (7.0-16.0); BILIRUBIN,TOTAL 0.7 mg/dL (0.3-1.0); BUN/CREATININE RATIO 38.8; CALCIUM SERUM 7.1 mg/dL (8.6-10.3); CARBON DIOXIDE 23.9 mEq/L (21.0-31.0); CHLORIDE 125 mEq/L (98-107); CREATININE - SERUM 2.6 mg/dL (0.7-1.3); GLUCOSE 121 mg/dL (70-105); POTASSIUM SERUM 3.6 mEq/L (3.5-5.1); SGOT 58 U/L (13-39); SGPT/ALT 30 U/L (7-52)
[2016-04-27 05:49] LABS: ALB/GLOB RATIO 0.7 (1.0-1.8); BILIRUBIN,DIRECT 0.27 mg/dL (0.0-0.2); BILIRUBIN,TOTAL 0.7 mg/dL (0.3-1.0); MAGNESIUM 2.7 mg/dL (1.9-2.7); PHOSPHOROUS 3.7 mg/dL (2.5-5.0)
[2016-04-27 05:50] LABS: BUN - UREA NITROGEN 101 mg/dL (7-25); SODIUM SERUM 158 mEq/L (136-145)
[2016-04-27 06:02] LABS: BAND NEUTROPHILE 8 % (0-10); EOSINOPHIL 2 % (0-5); NEUTROPHILS 64 % (40-80); TOTAL CELLS COUNTED 100
[2016-04-27 06:04] LABS: ANISOCYTOSIS 1+
[2016-04-27 06:21] LABS: PLATELET ESTIMATE DECREASED PLATELETS (NORMAL); PLATELET MORPHOLOGY GIANT PLATELETS SEEN (NORMAL)
[2016-04-27 06:22] LABS: PLATELET COUNT 83 Th/cmm (150-400)
[2016-04-27 06:23] LABS: HEMOGLOBIN 7.8 gm/dL (12.6-17.4)
[2016-04-27 06:24] LABS: HEMATOCRIT 23.9 % (39.0-49.0)
[2016-04-27] MEDS: Albuterol/Ipratropium Neb 3 ML AERS HHN PRN ×2 (07:41→15:35)
--- NOTE | 2016-04-27 07:59 | Consultation ---
REASON FOR CONSULTATION: Help with pneumonia with respiratory failure. CONSULT NOTE: This is an 85-year-old gentleman who was living in local convalescent home with significant medical issues including issue of diagnosis of dementia, previous history of CVA, G-tube, dysphagia, aphasia, and apparently, the patient basically was brought in up here because of coughing, chest congestion, and severe respiratory distress. Subsequently, the patient was diagnosed to have acute respiratory failure with ____ and also electrolyte . The patient was resuscitated, intubated, and subsequently, I was asked to see this patient for further care and necessary treatment. Unfortunately, meaningful detailed history from the patient is not available as the patient is quite demented and currently intubated. PAST MEDICAL HISTORY: Dementia, dysphagia, history of CVA, history of previous pneumonia, history of electrolyte imbalance, and history of anemia. Current medication is iron sulfate as well as G-tube feeding. ALLERGIC HISTORY: Nil. Other history is very limited at this particular time. PHYSICAL EXAMINATION: GENERAL: This is an elderly looking gentleman, opens eyes, not in acute respiratory distress, currently on a ventilator with assist control mode of ventilator. VITAL SIGNS: The patient's current recorded vital signs, temperature is 98.6, blood pressure is ____, respirations 14, saturation 100% on 40% of oxygen by volume ventilator. HEENT: Examination of the head is essentially unremarkable. Pupils appear to be equal and reacting to light. Conjunctivae are slightly pallor. Oral cavity shows endotracheal tube with poor dental hygiene. Tongue is dry. NECK: No nodes in the neck could be palpated. CHEST: Shows occasional rhonchi with secretory noise bilaterally. HEART: Regular and tachycardic. ABDOMEN: Shows G-tube, otherwise soft and nontender. EXTREMITIES: Show significant contractures of both the lower extremity. LABORATORY DATA: The patient's chest x-ray shows endotracheal tube just above juan antonio, and there is infiltrate in the left upper lobe. The patient's white count is 6.7, hemoglobin 10.8, and platelet count is 96,000. ABG done on 60% of oxygen this morning, pO2 is 141 with 60% of oxygen assist control mode of ventilator. IMPRESSION: 1. The patient has acute respiratory failure. Most likely, this is related to pneumonia. 2. Severe dehydration with renal failure, prerenal azotemia. PLANS AND SUGGESTIONS: We will go ahead and get aggressive panculture. We will ____ IV antibiotic per ID. We will stabilize electrolytes and decrease FIO2. We may start weaning once the electrolytes are much better, etc., and go from there. Thank you very much. We will be glad to follow along with you. JOB# [id number]
[2016-04-27] MEDS ORDERED: Probiotic Screen MC PRN (08:30)
[2016-04-27] MEDS: Enoxaparin 30 mg/0.3 mL 0.3mL Syr SUBQ SCH (08:37)
[2016-04-27 09:26] LABS: INR 1.03 (0.5-1.4); PROTHROMBIN TIME (TEST) 10.2 SECONDS (9.5-11.5)
[2016-04-27 09:28] LABS: ABG SOURCE Arterial; ALLEN TEST YES; BE(B) 2.2 mmol/L (-3.0-3.0); FIO2 40; HCO3 26.5 mmol/L (20.0-26.0); MECH RATE 12; MECH VT 500; PS 12; pH 7.44 (7.35-7.45)
[2016-04-27] MEDS: Dextrose 5% 1,000 ML IV SCH ×2 (09:52→20:08)
--- NOTE | 2016-04-27 11:15 | Diagnostic Imaging Report ---
Portable chest x-ray HISTORY: Pneumonia Compared with prior exam of 04/26/2016, increasing infiltrate is noted within the left lung along with the slight increase in the left pleural effusion. An endotracheal tube tip is approximately 2.0 cm above the juan antonio. IMPRESSION: 1. Increasing infiltrate within the left lung along with an increase in a left pleural effusion.
[2016-04-27] MEDS: Lactobacillus Rhamnosus 10 Billion CFU Capsule PO SCH (12:31)
[2016-04-27] MEDS: Therahoney Gel 42.5gm Tube TP SCH (12:35)
[2016-04-27] MEDS: INSULIN ASPART SLIDING SCALE 100 UNITS/ML UNIT SUBQ SCH ×3 (14:06→20:08)
--- NOTE | 2016-04-28 02:54 | Progress Notes ---
PROBLEM LIST: 1.Acute respiratory failure. 2.Extensive pneumonia, left side. 3.Severe dehydration with renal azotemia. 4.Suspect obstructive sleep apnea syndrome with significant ____. SYMPTOMS: The patient appears to be responding to verbal stimuli, but no communication could be done and the patient is not in any acute respiratory distress with SMV of 12. PHYSICAL EXAMINATION: VITAL SIGNS: Heart rate is 70, blood pressure is 98/55, saturation 99% on 40% of oxygen. NECK: Veins could not be visualized. CHEST: Shows occasional rhonchi with generalized diminished air entry, mostly in the left base. HEART: Regular. ABDOMEN: Slightly distended. EXTREMITIES: Shows contractures and flexion of both the lower extremities. LABORATORY DATA: The patient's CBC: White count is 4.4, hemoglobin 9.8 and platelet estimation is decreased and patient's chest x-ray shows still infiltrate on the left mid lung area and ABG shows pO2 of 82 with SMV of 12 on 40% of oxygen with ____ support. Electrolytes are slightly decrease in sodium as well as BUN and creatinine. ASSESSMENT: 1.The patient clinically seemingly improving with acute respiratory failure. 2.Extensive pneumonia. 3.Severe dehydration with possibly obstructive sleep apnea syndrome. PLANS AND SUGGESTIONS: We will go ahead and continue current treatment. We will decrease backup rate, follow up electrolytes again tomorrow to see how it is and go from there. JOB# [id number]
[2016-04-28 05:40] LABS: ALB/GLOB RATIO 0.7 (1.0-1.8); ALKALINE PHOSPHATASE 105 U/L (34-104); ANION GAP 9.1 (7.0-16.0); BILIRUBIN,TOTAL 0.9 mg/dL (0.3-1.0); BUN/CREATININE RATIO 36.3; CALCIUM SERUM 7.4 mg/dL (8.6-10.3); CARBON DIOXIDE 25.9 mEq/L (21.0-31.0); CHLORIDE 118 mEq/L (98-107); CREATININE - SERUM 2.4 mg/dL (0.7-1.3); GLUCOSE 147 mg/dL (70-105); MAGNESIUM 2.7 mg/dL (1.9-2.7); SGOT 59 U/L (13-39); SGPT/ALT 36 U/L (7-52); SODIUM SERUM 149 mEq/L (136-145)
[2016-04-28 06:08] LABS: MEAN CELL VOLUME 82.5 fl (80-99); MEAN CORPUSCULAR HEMOGLOBIN 27.4 pg (27.0-31.0); MEAN CORPUSCULAR HGB CONC 33.3 pg (28.0-36.0); MEAN PLATELET VOLUME 14.7 fl; PLATELET COUNT 80 Th/cmm (150-400); RED CELL DISTRIBUTION WIDTH 17.2 % (11.5-20.0); WHITE BLOOD COUNT 3.8 Th/cmm (4.8-10.8)
[2016-04-28 06:12] LABS: BUN - UREA NITROGEN 87 mg/dL (7-25)
[2016-04-28 06:14] LABS: HEMATOCRIT 23.9 % (39.0-49.0)
[2016-04-28] MEDS: INSULIN ASPART SLIDING SCALE 100 UNITS/ML UNIT SUBQ SCH ×4 (06:32→20:40)
[2016-04-28] MEDS: Albuterol/Ipratropium Neb 3 ML AERS HHN PRN ×2 (07:28→16:15)
[2016-04-28 08:32] LABS: ANISOCYTOSIS 1+; BAND NEUTROPHILE 6 % (0-10); EOSINOPHIL 4 % (0-5); NEUTROPHILS 63 % (40-80); PLATELET ESTIMATE DECREASED PLATELETS (NORMAL); PLATELET MORPHOLOGY GIANT PLATELETS SEEN (NORMAL); TOTAL CELLS COUNTED 100
[2016-04-28 09:02] LABS: ABG SOURCE Arterial; BE(B) -0.2 mmol/L (-3.0-3.0); HCO3 24.8 mmol/L (20.0-26.0); pH 7.39 (7.35-7.45)
[2016-04-28 09:03] LABS: ALLEN TEST YES; FIO2 40; MECH RATE 6; MECH VT 500; PS 12
[2016-04-28] MEDS: Enoxaparin 30 mg/0.3 mL 0.3mL Syr SUBQ SCH (09:31)
[2016-04-28] MEDS: Lactobacillus Rhamnosus 10 Billion CFU Capsule PO SCH (09:32)
[2016-04-28] MEDS: Therahoney Gel 42.5gm Tube TP SCH (09:32)
[2016-04-28] MEDS: Dextrose 5% 1,000 ML IV SCH ×2 (09:36→20:32)
--- NOTE | 2016-04-28 11:05 | Diagnostic Imaging Report ---
Portable chest x-ray HISTORY: Pneumonia Compared with the prior exam of 04/27/2016, persistent diffuse infiltrates seen in the left lung. Evidence of a left pleural effusion. The endotracheal tube tip is approximately 1.5 cm above the juan anotnio. IMPRESSION: 1. Little change in the pulmonary status as noted above.
[2016-04-28] MEDS: Chlorhexidine Gluconate 0.12% 15mL Mouthwash MM SCH (20:37)
--- NOTE | 2016-04-28 20:39 | Infectious Disease Prog Note ---
Infectious Disease Subjective - Review of Systems Service Date: 04/28/16 Subjective: Improving gradually. Intubated orally, on vent support, weaning protocol on. Infectious Disease Objective - Results Result Diagrams: 04/28/16 04:36 04/28/16 04:36 Recent Labs: Laboratory Last Values WBC 3.8 Th/cmm (4.8-10.8) L 04/28/16 04:36 RBC 2.90 Mil/cmm (3.80-5.80) L 04/28/16 04:36 Hgb 8.0 gm/dL (12.6-17.4) L 04/28/16 04:36 Hct 23.9 % (39.0-49.0) L* 04/28/16 04:36 MCV 82.5 fl (80-99) 04/28/16 04:36 MCH 27.4 pg (27.0-31.0) 04/28/16 04:36 MCHC Differential 33.3 pg (28.0-36.0) 04/28/16 04:36 RDW 17.2 % (11.5-20.0) 04/28/16 04:36 Plt Count 80 Th/cmm (150-400) L 04/28/16 04:36 MPV 14.7 fl 04/28/16 04:36 Neutrophils % 80.4 % (40.0-80.0) H 04/26/16 06:44 Band Neutrophils % 6 % (0-10) 04/28/16 04:36 Lymphocytes % 11.2 % (20.0-50.0) L 04/26/16 06:44 Monocytes % 3.5 % (2.0-10.0) 04/26/16 06:44 Eosinophils % 4.8 % (0.0-5.0) 04/26/16 06:44 Basophils % 0.1 % (0.0-2.0) 04/26/16 06:44 Neutrophils (Manual) 63 % (40-80) 04/28/16 04:36 Lymphocytes 20 % (20-50) 04/28/16 04:36 Monocytes 6 % (2-10) 04/28/16 04:36 Eosinophils 4 % (0-5) 04/28/16 04:36 Atypical Lymphocytes 1 % 04/28/16 04:36 Platelet Estimate DECREASED PLATELETS (NORMAL) 04/28/16 04:36 Platelet Morphology GIANT PLATELETS SEEN (NORMAL) 04/28/16 04:36 Anisocytosis 1+ 04/28/16 04:36 RBC Morph Micro Appear ABNORMAL (NORMAL) 04/28/16 04:36 Plt Count 83 Th/cmm (150-400) L 04/27/16 04:38 PT 10.2 SECONDS (9.5-11.5) 04/27/16 04:38 INR 1.03 (0.5-1.4) 04/27/16 04:38 PTT (Actin FS) 36.4 SECONDS (26.0-38.0) 04/27/16 04:38 Fibrinogen 483.0 mg/dL (200.0-400.0) H 04/27/16 04:38 D-Dimer 3960 ng/mL (100-400) H 04/27/16 04:38 Specimen Source Arterial 04/28/16 08:45 Sample Site Right Radial 04/28/16 08:45 pH 7.39 (7.35-7.45) 04/28/16 08:45 pCO2 41.0 mmHg (35.0-45.0) 04/28/16 08:45 pO2 87.0 mmHg (80.0-100.0) 04/28/16 08:45 HCO3 24.8 mmol/L (20.0-26.0) 04/28/16 08:45 Base Excess -0.2 mmol/L (-3.0-3.0) 04/28/16 08:45 O2 Saturation 97.0 % (92.0-100.0) 04/28/16 08:45 Paul Test YES 04/28/16 08:45 Vent Rate 6 04/28/16 08:45 Inspired O2 40 04/28/16 08:45 Tidal Volume 500 04/28/16 08:45 PEEP 0 04/28/16 08:45 Pressure (ins/psv/peep) 12 04/28/16 08:45 Critical Value E.ANGELES 04/28/16 08:45 Sodium 149 mEq/L (136-145) H 04/28/16 04:36 Potassium 4.0 mEq/L (3.5-5.1) 04/28/16 04:36 Chloride 118 mEq/L (98-107) H 04/28/16 04:36 Carbon Dioxide 25.9 mEq/L (21.0-31.0) 04/28/16 04:36 Anion Gap 9.1 (7.0-16.0) 04/28/16 04:36 BUN 87 mg/dL (7-25) H* 04/28/16 04:36 Creatinine 2.4 mg/dL (0.7-1.3) H 04/28/16 04:36 Est GFR ( Amer) TNP 04/28/16 04:36 Est GFR (Non-Af Amer) TNP 04/28/16 04:36 BUN/Creatinine Ratio 36.3 04/28/16 04:36 Glucose 147 mg/dL (70-105) H 04/28/16 04:36 POC Glucose 113 MG/DL (70 - 105) H 04/28/16 17:30 Hemoglobin A1c % 6.0 % (4.0-6.0) 04/25/16 20:15 Whole Bld Lactic Acid 1.86 mmol/L (0.60-2.00) 04/25/16 20:15 Calcium 7.4 mg/dL (8.6-10.3) L 04/28/16 04:36 Phosphorus 3.7 mg/dL (2.5-5.0) 04/27/16 04:38 Magnesium 2.7 mg/dL (1.9-2.7) 04/28/16 04:36 Total Bilirubin 0.9 mg/dL (0.3-1.0) 04/28/16 04:36 Direct Bilirubin 0.27 mg/dL (0.0-0.2) H 04/27/16 04:38 AST 59 U/L (13-39) H 04/28/16 04:36 ALT 36 U/L (7-52) 04/28/16 04:36 Alkaline Phosphatase 105 U/L (34-104) H 04/28/16 04:36 Troponin I 0.07 ng/mL (0.01-0.05) H* D 04/26/16 15:00 Total Protein 6.7 gm/dL (6.0-8.3) 04/28/16 04:36 Albumin 2.7 gm/dL (4.2-5.5) L 04/28/16 04:36 Globulin 4.0 gm/dL 04/28/16 04:36 Albumin/Globulin Ratio 0.7 (1.0-1.8) L 04/28/16 04:36 TSH 3.66 uIU/ml (0.34-5.60) 04/27/16 04:38 Urine Source CATH 04/25/16 20:55 Urine Color ORANGE 04/25/16 20:55 Urine Clarity HAZY (CLEAR) 04/25/16 20:55 Urine pH 5.0 04/25/16 20:55 Ur Specific [place] 1.10583 (1.005-1.030) H 04/25/16 20:55 Urine Protein 30 mg/dL (NEGATIVE) H 04/25/16 20:55 Urine Glucose (UA) NEGATIVE mg/dL (NEGATIVE) 04/25/16 20:55 Urine Ketones 15 mg/dL (NEGATIVE) H 04/25/16 20:55 Urine Blood NEGATIVE (NEGATIVE) 04/25/16 20:55 Urine Nitrate NEGATIVE (NEGATIVE) 04/25/16 20:55 Urine Bilirubin NEGATIVE (NEGATIVE) 04/25/16 20:55 Urine Urobilinogen 1.0 E.U./dL (0.2 - 1.0) 04/25/16 20:55 Ur Leukocyte Esterase NEGATIVE (NEGATIVE) 04/25/16 20:55 Urine RBC 0-2 /hpf (0-5) H 04/25/16 20:55 Urine WBC 2-5 /hpf (0-5) H 04/25/16 20:55 Ur Epithelial Cells FEW /lpf (FEW) 04/25/16 20:55 Uric Acid Crystals FEW /hpf (NONE SEEN) 04/25/16 20:55 Amorphous Sediment MODERATE URATES (NONE SEEN) 04/25/16 20:55 Urine Bacteria FEW /hpf (NONE SEEN) 04/25/16 20:55 Random Vancomycin 10.8 ug/mL (5.0-40.0) 04/28/16 04:36 - Physical Exam Vitals and I&O: Vital Signs Temp 99.0 F 04/28/16 16:00 Pulse 66 04/28/16 19:26 Resp 17 04/28/16 18:00 BP 91/42 04/28/16 18:00 Pulse Ox 99 04/28/16 19:26 Intake & Output 04/28/16 04/28/16 04/29/16 06:59 18:59 06:59 Intake Total 2750 300 1850 Output Total 650 800 Balance 2100 300 1050 Intake: Intake, IV Amount 2100 300 1000 Dextrose 5% 1,000 ml @ 2000 1000 100 mls/hr IV .Q10H [facility] Rx#:[id number] Piperacillin Sodium/ 100 50 Tazobact 2.25 gm In Sodium Chloride 0.9% 50 ml @ 100 mls/hr IV Q8HR [facility] Rx#:[id number] Tube Feeding 650 850 Output: Urine 650 800 Other: # Bowel Movements 3 0 Stool Characteristics Soft Brown Brown Active Medications: Current Medications Albuterol/Ipratropium (Duoneb Neb) 3 ml HHN Q2H PRN PRN Reason: Respiratory Distress Stop: 06/24/16 22:45 Last Admin: 04/28/16 16:15 Dose: 3 ml Chlorhexidine Gluconate (Peridex) 15 ml MM 0800,1999 [facility] Stop: 06/27/16 19:59 Last Admin: 04/28/16 20:37 Dose: 15 ml Enoxaparin Sodium (Lovenox) 30 mg SUBQ DAILY [facility] Stop: 06/25/16 08:59 Last Admin: 04/28/16 09:31 Dose: 30 mg Famotidine (Pepcid) 20 mg IVP Q12H [facility] Stop: 06/26/16 08:59 Last Admin: 04/28/16 09:32 Dose: 20 mg Piperacillin Sod/Tazobactam (Sod 2.25 gm/ Sodium Chloride) 50 mls @ 100 mls/hr IV Q8HR [facility] Stop: 06/25/16 04:59 Last Infusion: 04/28/16 13:03 Dose: Infused Dextrose (D5w) 1,000 mls @ 100 mls/hr IV .Q10H [facility] Stop: 06/25/16 08:44 Last Admin: 04/28/16 20:32 Dose: 100 mls/hr Insulin Aspart (Novolog Insulin Sliding Scale) 0 units SUBQ ACHS JJ PRN Reason: Protocol Stop: 06/25/16 07:29 Last Admin: 04/28/16 17:36 Dose: Not Given Lactobacillus Rhamnosus (Culturelle) 1 each PO DAILY [facility] Stop: 06/26/16 08:59 Last Admin: 04/28/16 09:32 Dose: 1 each Lorazepam (Ativan) 2 mg IVP Q4HR PRN; Protocol PRN Reason: Agitation Stop: 06/24/16 22:38 Miscellaneous (Clinical Monitoring) 1 ea MC PRN PRN PRN Reason: RENAL DOSING Stop: 06/25/16 07:52 Miscellaneous (Vte Chemical Prophylaxis Screen/ Admission) 1 ea MC PRN PRN PRN Reason: PROTOCOL Stop: 06/25/16 09:54 Miscellaneous (Vancomycin Iv Per Pharmacy) 1 ea MC PRN PRN PRN Reason: PROTOCOL Stop: 06/25/16 14:29 Miscellaneous (Probiotic Screen) 1 ea MC PRN PRN PRN Reason: PROTOCOL Stop: 06/26/16 08:29 Wound Care/Dressing Products (Therahoney) 1 appl TP DAILY JJ Stop: 06/26/16 08:59 Last Admin: 04/28/16 09:32 Dose: 1 appl General: no acute distress, well developed, well nourished HEENT: atraumatic, normocephalic, PERRLA, EOMI Neck: supple Cardiovascular: S1S2, regular Lungs: clear to auscultation bilaterally, clear to percussion Abdomen: soft, no tender, no distended, no splenomegaly Extremities: other (foot ulcer b/l.), no cyanosis, no clubbing, no edema - Procedures Procedures: Procedures Procedure Code Date BLOOD TRANSFUSION SERVICE 80906 05/04/15 INSERT EMERGENCY AIRWAY 75787 04/25/16 INSERTION OF ENDOTRACHEAL AIRWAY INTO [place]ACHEA, VIA OPENING [id number] 04/25/16 RESPIRATORY VENTILATION, 24-96 CONSECUTIVE HOURS [id number] 04/25/16 TRANSFUSE NONAUT RED BLOOD CELLS IN PERIPH VEIN, PERC [id number] 05/04/15 VENT MGMT INPAT INIT DAY 00804 04/25/16 VENT MGMT INPAT SUBQ DAY 07606 04/25/16 Infectious Disease Assmt/Plan - Problem List Patient Problems: All Active Problems Anemia (Acute) D64.9 Dehydration (Acute) E86.0 Hyperosmolality and hypernatremia (Acute) E87.0 - Assessment Assessment: 1. CN staph sepsis. 2. Hypotension, suspect sepsis. 3. Suspect pneumonia. 4. Acute renal failure likely secondary to dehydration. 5. Increased respiratory failure, on ventilator. 6. Anemia. 7. Dementia. 8. Cerebrovascular accident. 9. Hypernatremia. 10.Thrombocytopenia. 11.Foot ulcers. 12.Protein calorie malnutrition. 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 14. Thrombocytopenia. - Plan Plan: Continue, vanco IV and change zosyn to rocephin. Follow up ct and echo report.
--- NOTE | 2016-04-29 04:05 | Progress Notes ---
PROBLEM LIST: 1.Acute respiratory failure. 2.Extensive pneumonia, left sided. 3.Obstructive sleep apnea syndrome with completely bedridden situation. SYMPTOMS: The patient is a little bit more obtunded, does not open much eyes to verbal stimuli. No respiratory distress. Currently, on SMV ____ setting. PHYSICAL EXAMINATION: VITAL SIGNS: The patient is afebrile, heart rate is in 60s and 70, blood pressure is 96/74, saturation currently on 40% is almost 99% to 97%. NECK: Veins could not be visualized. CHEST: Shows diminished air entry with occasional rhonchi, especially on the left side. HEART: Regular. ABDOMEN: Slightly distended, soft, nontender. EXTREMITIES: Significant contractures. LABORATORY DATA: White count shows 3.8, platelet is 80,000 and the patient's ABG, pO2 is 87 on SMV of 6 with pressor support 12. ASSESSMENT: The patient clinically seemingly improving except for still lot of bronchorrhea associated with some altered state of mind. PLANS AND SUGGESTIONS: We will try to decrease backup rate, repeat chest x-ray. Hopefully, when the patient is more alert and less secretion, we will extubate him and go from there. JOB# [id number]
[2016-04-29 05:56] LABS: ALB/GLOB RATIO 0.6 (1.0-1.8); ALKALINE PHOSPHATASE 97 U/L (34-104); ANION GAP 12.1 (7.0-16.0); BILIRUBIN,TOTAL 0.7 mg/dL (0.3-1.0); BUN - UREA NITROGEN 75 mg/dL (7-25); BUN/CREATININE RATIO 35.7; CALCIUM SERUM 7.4 mg/dL (8.6-10.3); CARBON DIOXIDE 25.9 mEq/L (21.0-31.0); CHLORIDE 115 mEq/L (98-107); CREATININE - SERUM 2.1 mg/dL (0.7-1.3); GLUCOSE 135 mg/dL (70-105); SGOT 49 U/L (13-39); SGPT/ALT 39 U/L (7-52); SODIUM SERUM 149 mEq/L (136-145)
[2016-04-29] MEDS: Dextrose 5% 1,000 ML IV SCH ×2 (06:20→16:27)
[2016-04-29] MEDS: INSULIN ASPART SLIDING SCALE 100 UNITS/ML UNIT SUBQ SCH ×4 (06:50→20:34)
[2016-04-29 07:27] LABS: % BASOPHILS 0.1 % (0.0-2.0); % EOSINOPHILS 3.5 % (0.0-5.0); % LYMPHOCYTES 12.2 % (20.0-50.0); % MONOCYTES 6.6 % (2.0-10.0); % NEUTROPHILS 77.6 % (40.0-80.0); HEMATOCRIT 24.5 % (39.0-49.0); HEMOGLOBIN 8.1 gm/dL (12.6-17.4); MEAN CELL VOLUME 82.8 fl (80-99); MEAN CORPUSCULAR HEMOGLOBIN 27.4 pg (27.0-31.0); MEAN CORPUSCULAR HGB CONC 33.1 pg (28.0-36.0); NEUTROPHILE ABSOLUTE 3.3 Th/cmm (1.8-8.0); PLATELET COUNT 83 Th/cmm (150-400); RED BLOOD COUNT 2.96 Mil/cmm (3.80-5.80); RED CELL DISTRIBUTION WIDTH 17.1 % (11.5-20.0); WHITE BLOOD COUNT 4.2 Th/cmm (4.8-10.8)
[2016-04-29] MEDS: Chlorhexidine Gluconate 0.12% 15mL Mouthwash MM SCH ×2 (08:06→20:33)
[2016-04-29 08:55] LABS: ABG SOURCE Arterial; BE(B) -0.1 mmol/L (-3.0-3.0); CRITICAL VALUES REPORTED BY PW; FIO2 30; HCO3 25.9 mmol/L (20.0-26.0); MECH RATE 4; MECH VT 500; PS 10; pH 7.35 (7.35-7.45)
[2016-04-29] MEDS: Lactobacillus Rhamnosus 10 Billion CFU Capsule PO SCH (09:06)
[2016-04-29] MEDS: Enoxaparin 30 mg/0.3 mL 0.3mL Syr SUBQ SCH (09:08)
[2016-04-29] MEDS: Therahoney Gel 42.5gm Tube TP SCH (09:10)
--- NOTE | 2016-04-29 09:56 | Diagnostic Imaging Report ---
Portable chest x-ray HISTORY: Pneumonia Compared with prior exam of 04/28/2016, no change in diffuse infiltrate throughout the left lung along with evidence of a persistent left pleural effusion. The heart remains enlarged. An endotracheal tube tip is approximately 2.5 cm above the juan antonio. IMPRESSION: 1. No change in the cardiopulmonary status as noted above.
--- NOTE | 2016-04-29 10:23 | Diagnostic Imaging Report ---
CT scan of the chest without intravenous contrast HISTORY: Pain, sepsis Total DLP equals 339 CTDI equals 10.9 Axial sections were obtained from the level above the clavicles down to level below the diaphragm. Endotracheal tube is seen. The heart is enlarged. Severe coronary artery and atherosclerotic vascular calcification is noted. Calcified lymph node seen within the azygos region of the mediastinum consistent with old granulomatous disease. There is extensive parenchymal density within the left internal lesser degree right lower lobe regions consistent with pneumonia and/or atelectasis. Small left pleural effusion. Changes within the left lung result in obscuration of the margins of the left hilum. Degenerative changes noted to the spine. IMPRESSION: 1. Cardiomegaly with evidence of severe coronary artery and after Scottie vascular disease 2. Extensive parenchymal density left lower lobe consistent with atelectasis and/or consolidation. The findings result in obscuration the margins the left hilum and obscuration of the left lower lobe bronchus and to a lesser degree left upper lobe bronchus. Additional infiltrate noted in the right lower lobe 3. Small left pleural effusion 4. Evidence of old granulomatous disease CT scan abdomen and pelvis without intravenous contrast HISTORY: Pain, sepsis Total DLP equals 728 CTDI equals 14.2 Axial sections were obtained from the xiphoid process down to the pubic symphysis. The liver exhibits a homogeneous parenchyma. No focal lesions. Punctate calcification seen within the spleen consistent with old granulomatous disease. No focal abnormality seen within the pancreas. Hypodense intraluminal densities noted in the gallbladder consistent with cholesterol gallstones. Gastrostomy tube is seen. There appears to be an approximate 4.0 cm cyst extending off the upper pole of the right kidney. Detail is limited due to patient motion artifact. An approximate 4.0 cm cyst extends off the posterior cortex of the left kidney. Small calcifications noted in the renal hilar areas consistent with atherosclerotic vascular changes. Additional diffuse severe atherosclerotic changes seen to the abdominal aorta and major branches. An approximate 1.5 cm round density is seen in the retrocrural region adjacent to the left side of the abdominal aorta consistent with a mildly enlarged lymph node. Findings of questionable significance. The pelvis demonstrates preservation of normal fat planes. No abnormal soft tissue masses or abnormal fluid collections. Colonic diverticula noted. Severe degenerative changes noted throughout the spine. Deformity and extensive fragmentation noted about proximal shaft of left femur consistent with old trauma. IMPRESSION: 1. Severe extensive atherosclerotic vascular changes 2. Bilateral renal cysts 3. Diverticulosis 4. Findings consistent with a prominent left retrocrural lymph node of questionable significance. 5. Severe degenerative changes throughout the spine along with chronic changes, deformity and fragmentation about the proximal portion of left femur consistent with old trauma. 6. Small fat-containing left inguinal hernia
--- NOTE | 2016-04-29 22:52 | Infectious Disease Prog Note ---
Infectious Disease Subjective - Review of Systems Service Date: 04/29/16 Subjective: Extubated successfully. on bipap at this time. Infectious Disease Objective - Results Result Diagrams: 04/29/16 07:03 04/29/16 04:44 Recent Labs: Laboratory Last Values WBC 4.2 Th/cmm (4.8-10.8) L 04/29/16 07:03 RBC 2.96 Mil/cmm (3.80-5.80) L 04/29/16 07:03 Hgb 8.1 gm/dL (12.6-17.4) L 04/29/16 07:03 Hct 24.5 % (39.0-49.0) L 04/29/16 07:03 MCV 82.8 fl (80-99) 04/29/16 07:03 MCH 27.4 pg (27.0-31.0) 04/29/16 07:03 MCHC Differential 33.1 pg (28.0-36.0) 04/29/16 07:03 RDW 17.1 % (11.5-20.0) 04/29/16 07:03 Plt Count 83 Th/cmm (150-400) L 04/29/16 07:03 MPV 14.0 fl 04/29/16 07:03 Neutrophils % 77.6 % (40.0-80.0) 04/29/16 07:03 Band Neutrophils % 6 % (0-10) 04/28/16 04:36 Lymphocytes % 12.2 % (20.0-50.0) L 04/29/16 07:03 Monocytes % 6.6 % (2.0-10.0) 04/29/16 07:03 Eosinophils % 3.5 % (0.0-5.0) 04/29/16 07:03 Basophils % 0.1 % (0.0-2.0) 04/29/16 07:03 Neutrophils (Manual) 63 % (40-80) 04/28/16 04:36 Lymphocytes 20 % (20-50) 04/28/16 04:36 Monocytes 6 % (2-10) 04/28/16 04:36 Eosinophils 4 % (0-5) 04/28/16 04:36 Atypical Lymphocytes 1 % 04/28/16 04:36 Platelet Estimate DECREASED PLATELETS (NORMAL) 04/28/16 04:36 Platelet Morphology GIANT PLATELETS SEEN (NORMAL) 04/28/16 04:36 Anisocytosis 1+ 04/28/16 04:36 RBC Morph Micro Appear ABNORMAL (NORMAL) 04/28/16 04:36 Plt Count 83 Th/cmm (150-400) L 04/27/16 04:38 PT 10.2 SECONDS (9.5-11.5) 04/27/16 04:38 INR 1.03 (0.5-1.4) 04/27/16 04:38 PTT (Actin FS) 36.4 SECONDS (26.0-38.0) 04/27/16 04:38 Fibrinogen 483.0 mg/dL (200.0-400.0) H 04/27/16 04:38 D-Dimer 3960 ng/mL (100-400) H 04/27/16 04:38 Specimen Source Arterial 04/29/16 08:40 Sample Site LB 04/29/16 08:40 pH 7.35 (7.35-7.45) 04/29/16 08:40 pCO2 47.0 mmHg (35.0-45.0) H 04/29/16 08:40 pO2 76.0 mmHg (80.0-100.0) L 04/29/16 08:40 HCO3 25.9 mmol/L (20.0-26.0) 04/29/16 08:40 Base Excess -0.1 mmol/L (-3.0-3.0) 04/29/16 08:40 O2 Saturation 94.0 % (92.0-100.0) 04/29/16 08:40 Paul Test YES 04/28/16 08:45 Vent Rate 4 04/29/16 08:40 Inspired O2 30 04/29/16 08:40 Tidal Volume 500 04/29/16 08:40 PEEP 0 04/28/16 08:45 Pressure (ins/psv/peep) 10 04/29/16 08:40 Critical Value PW 04/29/16 08:40 Sodium 149 mEq/L (136-145) H 04/29/16 04:44 Potassium 4.0 mEq/L (3.5-5.1) 04/29/16 04:44 Chloride 115 mEq/L (98-107) H 04/29/16 04:44 Carbon Dioxide 25.9 mEq/L (21.0-31.0) 04/29/16 04:44 Anion Gap 12.1 (7.0-16.0) 04/29/16 04:44 BUN 75 mg/dL (7-25) H 04/29/16 04:44 Creatinine 2.1 mg/dL (0.7-1.3) H 04/29/16 04:44 Est GFR ( Amer) TNP 04/29/16 04:44 Est GFR (Non-Af Amer) TNP 04/29/16 04:44 BUN/Creatinine Ratio 35.7 04/29/16 04:44 Glucose 135 mg/dL (70-105) H 04/29/16 04:44 POC Glucose 122 MG/DL (70 - 105) H 04/29/16 20:18 Hemoglobin A1c % 6.0 % (4.0-6.0) 04/25/16 20:15 Whole Bld Lactic Acid 1.86 mmol/L (0.60-2.00) 04/25/16 20:15 Calcium 7.4 mg/dL (8.6-10.3) L 04/29/16 04:44 Phosphorus 3.7 mg/dL (2.5-5.0) 04/27/16 04:38 Magnesium 2.7 mg/dL (1.9-2.7) 04/28/16 04:36 Total Bilirubin 0.7 mg/dL (0.3-1.0) 04/29/16 04:44 Direct Bilirubin 0.27 mg/dL (0.0-0.2) H 04/27/16 04:38 AST 49 U/L (13-39) H 04/29/16 04:44 ALT 39 U/L (7-52) 04/29/16 04:44 Alkaline Phosphatase 97 U/L (34-104) 04/29/16 04:44 Troponin I 0.07 ng/mL (0.01-0.05) H* D 04/26/16 15:00 Total Protein 6.8 gm/dL (6.0-8.3) 04/29/16 04:44 Albumin 2.6 gm/dL (4.2-5.5) L 04/29/16 04:44 Globulin 4.2 gm/dL 04/29/16 04:44 Albumin/Globulin Ratio 0.6 (1.0-1.8) L 04/29/16 04:44 TSH 3.66 uIU/ml (0.34-5.60) 04/27/16 04:38 Urine Source CATH 04/25/16 20:55 Urine Color ORANGE 04/25/16 20:55 Urine Clarity HAZY (CLEAR) 04/25/16 20:55 Urine pH 5.0 04/25/16 20:55 Ur Specific [place] 1.01813 (1.005-1.030) H 04/25/16 20:55 Urine Protein 30 mg/dL (NEGATIVE) H 04/25/16 20:55 Urine Glucose (UA) NEGATIVE mg/dL (NEGATIVE) 04/25/16 20:55 Urine Ketones 15 mg/dL (NEGATIVE) H 04/25/16 20:55 Urine Blood NEGATIVE (NEGATIVE) 04/25/16 20:55 Urine Nitrate NEGATIVE (NEGATIVE) 04/25/16 20:55 Urine Bilirubin NEGATIVE (NEGATIVE) 04/25/16 20:55 Urine Urobilinogen 1.0 E.U./dL (0.2 - 1.0) 04/25/16 20:55 Ur Leukocyte Esterase NEGATIVE (NEGATIVE) 04/25/16 20:55 Urine RBC 0-2 /hpf (0-5) H 04/25/16 20:55 Urine WBC 2-5 /hpf (0-5) H 04/25/16 20:55 Ur Epithelial Cells FEW /lpf (FEW) 04/25/16 20:55 Uric Acid Crystals FEW /hpf (NONE SEEN) 04/25/16 20:55 Amorphous Sediment MODERATE URATES (NONE SEEN) 04/25/16 20:55 Urine Bacteria FEW /hpf (NONE SEEN) 04/25/16 20:55 Random Vancomycin 16.1 ug/mL (5.0-40.0) 04/29/16 04:44 - Physical Exam Vitals and I&O: Vital Signs Temp 98.7 F 04/29/16 20:00 Pulse 67 04/29/16 22:00 Resp 20 04/29/16 22:00 BP 102/48 04/29/16 22:00 Pulse Ox 99 04/29/16 22:00 Intake & Output 04/29/16 04/29/16 04/30/16 06:59 18:59 06:59 Intake Total 3660 1979 Output Total 1800 1000 Balance 1860 980 Intake: Intake, IV Amount 2029 999 Dextrose 5% 1,000 ml @ 1979 1000 100 mls/hr IV .Q10H [facility] Rx#:[id number] cefTRIAXone 1 gm In 50 Dextrose 5% 50 ml @ 100 mls/hr IV Q24H [facility] Rx#: [id number] Tube Feeding 1630 980 Output: Urine 1800 1000 Other: # Bowel Movements 0 2 Stool Characteristics Liquid Brown Active Medications: Current Medications Albuterol/Ipratropium (Duoneb Neb) 3 ml HHN Q2H PRN PRN Reason: Respiratory Distress Stop: 06/24/16 22:45 Last Admin: 04/28/16 16:15 Dose: 3 ml Chlorhexidine Gluconate (Peridex) 15 ml MM 799,1999 [facility] Stop: 06/27/16 19:59 Last Admin: 04/29/16 20:33 Dose: 15 ml Enoxaparin Sodium (Lovenox) 30 mg SUBQ DAILY [facility] Stop: 06/25/16 08:59 Last Admin: 04/29/16 09:08 Dose: 30 mg Famotidine (Pepcid) 20 mg IVP Q12H [facility] Stop: 06/26/16 08:59 Last Admin: 04/29/16 20:28 Dose: 20 mg Dextrose (D5w) 1,000 mls @ 100 mls/hr IV .Q10H [facility] Stop: 06/25/16 08:44 Last Admin: 04/29/16 16:27 Dose: 100 mls/hr Ceftriaxone Sodium 1 gm/ (Dextrose) 50 mls @ 100 mls/hr IV Q24H [facility] Stop: 06/27/16 20:59 Last Admin: 04/29/16 20:25 Dose: 100 mls/hr Insulin Aspart (Novolog Insulin Sliding Scale) 0 units SUBQ ACHS JJ PRN Reason: Protocol Stop: 06/25/16 07:29 Last Admin: 04/29/16 20:34 Dose: Not Given Lactobacillus Rhamnosus (Culturelle) 1 each PO DAILY [facility] Stop: 06/26/16 08:59 Last Admin: 04/29/16 09:06 Dose: 1 each Lorazepam (Ativan) 2 mg IVP Q4HR PRN; Protocol PRN Reason: Agitation Stop: 06/24/16 22:38 Miscellaneous (Clinical Monitoring) 1 ea MC PRN PRN PRN Reason: RENAL DOSING Stop: 06/25/16 07:52 Miscellaneous (Vte Chemical Prophylaxis Screen/ Admission) 1 ea MC PRN PRN PRN Reason: PROTOCOL Stop: 06/25/16 09:54 Miscellaneous (Vancomycin Iv Per Pharmacy) 1 MC PRN PRN PRN Reason: PROTOCOL Stop: 06/25/16 14:29 Miscellaneous (Probiotic Screen) 1 MC PRN PRN PRN Reason: PROTOCOL Stop: 06/26/16 08:29 Wound Care/Dressing Products (Therahoney) 1 appl TP DAILY JJ Stop: 06/26/16 08:59 Last Admin: 04/29/16 09:10 Dose: 1 appl General: no acute distress, well developed, well nourished HEENT: atraumatic, normocephalic, PERRLA, EOMI, moist mucous membrane Neck: supple, no thyromegaly, no lymphadenopathy Cardiovascular: S1S2, regular Lungs: clear to auscultation bilaterally, clear to percussion Abdomen: soft, no tender, no distended Extremities: other (b/l foot wounds.), no cyanosis, no clubbing, no edema Neurological: awake - Procedures Procedures: Procedures Procedure Code Date BLOOD TRANSFUSION SERVICE 30173 05/04/15 INSERT EMERGENCY AIRWAY 81202 04/25/16 INSERTION OF ENDOTRACHEAL AIRWAY INTO [place], VIA OPENING [id number] 04/25/16 RESPIRATORY VENTILATION, 24-96 CONSECUTIVE HOURS [id number] 04/25/16 TRANSFUSE NONAUT RED BLOOD CELLS IN PERIPH VEIN, PERC 56885A5 05/04/15 VENT MGMT INPAT INIT DAY 58390 04/25/16 VENT MGMT INPAT SUBQ DAY 05572 04/25/16 Infectious Disease Assmt/Plan - Problem List Patient Problems: All Active Problems Anemia (Acute) D64.9 Dehydration (Acute) E86.0 Hyperosmolality and hypernatremia (Acute) E87.0 - Assessment Assessment: 1. CN staph sepsis. 2. Hypotension, suspect sepsis. 3. Suspect pneumonia. 4. Acute renal failure likely secondary to dehydration. 5. Increased respiratory failure, on ventilator. 6. Anemia. 7. Dementia. 8. Cerebrovascular accident. 9. Hypernatremia. 10.Thrombocytopenia. 11.Foot ulcers. 12.Protein calorie malnutrition. 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 14. Thrombocytopenia. - Plan Plan: Continue vanco IV and Rocephin for two weeks.
[2016-04-30] MEDS: Dextrose 5% 1,000 ML IV SCH ×2 (02:30→18:10)
--- NOTE | 2016-04-30 04:28 | Progress Notes ---
PROBLEM LIST: 1.Acute respiratory failure. 2.Left-sided pneumonia. 3.Electrolyte imbalance with prerenal azotemia. SYMPTOMS: Nil. The patient is still intubated in ICU with CPAP and pressor support, appears to be more awake, but according to the nursing staff has less secretions today. PHYSICAL EXAMINATION: VITAL SIGNS: The patient is afebrile, pulse is in 70s to 90s, blood pressure within normal limits, saturation 95 on 30% of oxygen and CPAP. NECK: Veins could not be visualized. CHEST: Shows diminished air entry with occasional rhonchi. HEART: Regular. ABDOMEN: Soft, nontender. EXTREMITIES: Shows ____ edema. LABORATORY DATA: The patient's white count is 4.2, hemoglobin 8.1 and patient's ABG show pCO2 of 47, pO2 of 76 on 30% of oxygen with pressor support and electrolytes almost sodium is 149, creatinine is 2.1, BUN is 75. ASSESSMENT: The patient clinically significantly improved. PLANS AND SUGGESTIONS: We will check other weaning parameters okay. Check ____ if that is okay, may consider extubation today and go from there. JOB# [id number]
[2016-04-30 05:41] LABS: ALB/GLOB RATIO 0.6 (1.0-1.8); ALKALINE PHOSPHATASE 91 U/L (34-104); ANION GAP 7.8 (7.0-16.0); BILIRUBIN,TOTAL 0.5 mg/dL (0.3-1.0); BUN - UREA NITROGEN 60 mg/dL (7-25); BUN/CREATININE RATIO 35.3; CALCIUM SERUM 7.5 mg/dL (8.6-10.3); CHLORIDE 115 mEq/L (98-107); CREATININE - SERUM 1.7 mg/dL (0.7-1.3); GLUCOSE 125 mg/dL (70-105); POTASSIUM SERUM 3.8 mEq/L (3.5-5.1); SGOT 35 U/L (13-39); SGPT/ALT 33 U/L (7-52); SODIUM SERUM 146 mEq/L (136-145)
[2016-04-30 06:09] LABS: MEAN CELL VOLUME 83.4 fl (80-99); MEAN CORPUSCULAR HEMOGLOBIN 27.4 pg (27.0-31.0); MEAN CORPUSCULAR HGB CONC 32.9 pg (28.0-36.0); MEAN PLATELET VOLUME 13.4 fl; PLATELET COUNT 90 Th/cmm (150-400); RED BLOOD COUNT 2.78 Mil/cmm (3.80-5.80); RED CELL DISTRIBUTION WIDTH 16.4 % (11.5-20.0); WHITE BLOOD COUNT 3.7 Th/cmm (4.8-10.8)
[2016-04-30] MEDS: INSULIN ASPART SLIDING SCALE 100 UNITS/ML UNIT SUBQ SCH ×4 (06:32→22:37)
[2016-04-30 06:35] LABS: HEMATOCRIT 23.2 % (39.0-49.0); HEMOGLOBIN 7.6 gm/dL (12.6-17.4)
[2016-04-30 06:38] LABS: TOTAL CELLS COUNTED 100
[2016-04-30 06:39] LABS: BAND NEUTROPHILE 3 % (0-10); EOSINOPHIL 3 % (0-5); NEUTROPHILS 71 % (40-80)
[2016-04-30 06:49] LABS: PLATELET ESTIMATE DECREASED PLATELETS (NORMAL)
[2016-04-30] MEDS: Albuterol/Ipratropium Neb 3 ML AERS HHN PRN ×3 (07:35→15:00)
[2016-04-30 08:32] LABS: BE(B) 2.1 mmol/L (-3.0-3.0); HCO3 27.3 mmol/L (20.0-26.0)
[2016-04-30 08:33] LABS: ABG SOURCE Arterial; ALLEN TEST PASS; CRITICAL VALUES REPORTED BY PW; FIO2 30
[2016-04-30] MEDS: Chlorhexidine Gluconate 0.12% 15mL Mouthwash MM SCH (08:46)
[2016-04-30] MEDS: Therahoney Gel 42.5gm Tube TP SCH (08:47)
[2016-04-30] MEDS: Lactobacillus Rhamnosus 10 Billion CFU Capsule PO SCH (08:47)
[2016-04-30] MEDS: Enoxaparin 30 mg/0.3 mL 0.3mL Syr SUBQ SCH (08:57)
--- NOTE | 2016-04-30 22:05 | Cardiology ---
ECHOCARDIOGRAM REPORT The patient of Dr. Weiss. M-MODE ECHOCARDIOGRAM: Mitral valve, anterior leaflet of mitral valve shows normal excursion, EF velocity. Posterior leaflet of mitral valve shows normal excursion. Left ventricular posterior wall shows increased thickness, normal excursion. Interventricular septum shows increased thickness, normal excursion, hypertrophy of the left ventricle, ejection fraction 50%. CONCLUSION: Hypertrophy of the left ventricle, ejection fraction 50%. 2D ECHO: Technically poor, only structure visualized in apical 4-chamber view, which showed normal-sized left ventricle with hypertrophy of the left ventricle. Left atrium normal. Right ventricular cavity, right atrium normal. No pericardial effusion. CONCLUSION: Hypertrophy of the left ventricle, ejection fraction 50%. Doppler study shows trace mitral regurgitation, tricuspid regurgitation, and aortic regurgitation. JOB# [id number]
[2016-05-01] MEDS: Dextrose 5% 1,000 ML IV SCH (04:53)
[2016-05-01 05:17] LABS: RED BLOOD COUNT 2.87 Mil/cmm (3.80-5.80); WHITE BLOOD COUNT 4.1 Th/cmm (4.8-10.8)
[2016-05-01 05:18] LABS: HEMOGLOBIN 7.8 gm/dL (12.6-17.4)
[2016-05-01 05:19] LABS: HEMATOCRIT 23.7 % (39.0-49.0); MEAN CELL VOLUME 82.4 fl (80-99); MEAN CORPUSCULAR HEMOGLOBIN 27.3 pg (27.0-31.0); MEAN CORPUSCULAR HGB CONC 33.1 pg (28.0-36.0); MEAN PLATELET VOLUME 12.3 fl; PLATELET COUNT 108 Th/cmm (150-400); RED CELL DISTRIBUTION WIDTH 16.6 % (11.5-20.0)
[2016-05-01 06:01] LABS: ANION GAP 6.5 (7.0-16.0); BUN - UREA NITROGEN 46 mg/dL (7-25); BUN/CREATININE RATIO 32.9; CALCIUM SERUM 7.4 mg/dL (8.6-10.3); CARBON DIOXIDE 26.5 mEq/L (21.0-31.0); CHLORIDE 116 mEq/L (98-107); CREATININE - SERUM 1.4 mg/dL (0.7-1.3); GLUCOSE 112 mg/dL (70-105); SODIUM SERUM 145 mEq/L (136-145)
[2016-05-01 06:02] LABS: ALB/GLOB RATIO 0.6 (1.0-1.8); ALKALINE PHOSPHATASE 87 U/L (34-104); BILIRUBIN,TOTAL 0.5 mg/dL (0.3-1.0); SGOT 30 U/L (13-39); SGPT/ALT 31 U/L (7-52)
[2016-05-01] MEDS: Chlorhexidine Gluconate 0.12% 15mL Mouthwash MM SCH (06:45)
[2016-05-01] MEDS: INSULIN ASPART SLIDING SCALE 100 UNITS/ML UNIT SUBQ SCH ×4 (06:51→21:55)
[2016-05-01 07:13] LABS: ANISOCYTOSIS 1+; BAND NEUTROPHILE 5 % (0-10); EOSINOPHIL 4 % (0-5); NEUTROPHILS 73 % (40-80); PLATELET ESTIMATE DECREASED PLATELETS (NORMAL); PLATELET MORPHOLOGY GIANT PLATELETS SEEN (NORMAL); TOTAL CELLS COUNTED 100
[2016-05-01] MEDS: Albuterol/Ipratropium Neb 3 ML AERS HHN PRN ×3 (07:34→15:36)
[2016-05-01 08:58] LABS: ABG SOURCE Arterial; BE(B) 2.8 mmol/L (-3.0-3.0); HCO3 28.5 mmol/L (20.0-26.0); pH 7.39 (7.35-7.45)
[2016-05-01 08:59] LABS: ALLEN TEST Positive; FIO2 32
[2016-05-01] MEDS: Enoxaparin 30 mg/0.3 mL 0.3mL Syr SUBQ SCH (08:59)
[2016-05-01] MEDS ORDERED: Vancomycin HCl 1.5 GM in Sodium Chloride 0.9% 500 ML IV ONE (09:00)
[2016-05-01] MEDS: Therahoney Gel 42.5gm Tube TP SCH (09:03)
[2016-05-01] MEDS: Lactobacillus Rhamnosus 10 Billion CFU Capsule PO SCH (09:03)
[2016-05-01] MEDS: D5-0.45NS 1,000 ML IV SCH (09:29)
[2016-05-01] MEDS: Sodium Ferric Gluconate 125 MG in Sodium Chloride 0.9% 100 ML IV SCH (10:50)
[2016-05-01] MEDS: Epoetin Alfa 20000 Units/mL Vial SUBQ SCH (10:50)
--- NOTE | 2016-05-01 11:01 | Diagnostic Imaging Report ---
Portable chest x-ray HISTORY: Pneumonia Compared with prior exam of 04/30/2016, the heart remains enlarged. Persistent infiltrate is seen to the left lung with evidence of a left pleural effusion. IMPRESSION: 1. No change in the cardiopulmonary status as noted above.
--- NOTE | 2016-05-01 11:02 | Progress Notes ---
PULMONARY PROGRESS NOTE PROBLEM LIST: 1. Status post acute respiratory failure. 2. Left-sided pneumonia with effusion. 3. Suspect obstructive sleep apnea syndrome and significant morbid obesity with obesity hypoventilation syndrome. SYMPTOMS: The patient opens eyes. feeling okay. No specific new symptoms. Has some secretory noise upper airway. PHYSICAL EXAMINATION: VITAL SIGNS: Temperature is around 98 and 99, blood pressure 110/62, saturation 96% on 30% of oxygen. NECK: Veins not visualized. CHEST: Shows diminished air entry with occasional rhonchi. HEART: Regular. ABDOMEN: Distended, soft, and nontender. LABORATORY DATA: The patient's chest x-ray shows some haziness on the left side presumably some fluid, and ABG currently on 30% of oxygen, appears to be in acceptable range and white count is 3.7 with hemoglobin of 7.6. ASSESSMENT: The patient clinically appears to be stable, tolerating extubation, left-sided pneumonia with effusion, some problems with clean upper airway secretions. PLANS AND SUGGESTIONS: We will go ahead and switch it to nasal cannula, continue nocturnal BiPAP, and will follow through other x-ray in next day or two. Okay to put the patient on a step-down and go from there. JOB# [id number]
--- NOTE | 2016-05-01 11:30 | Diagnostic Imaging Report ---
Portable chest x-ray HISTORY: Pneumonia Compared to prior exam 04/29/2016, the heart remains enlarged. No change in infiltrate throughout the left lung with evidence for left pleural effusion. The endotracheal tube has been removed. IMPRESSION: 1. Status post removal endotracheal tube 2. No change in the cardiopulmonary status as noted above.
--- NOTE | 2016-05-01 15:17 | Diagnostic Imaging Report ---
Upper GI (Limited) HISTORY: Gastrostomy tube placement Water-soluble contrast was instilled through patient's gastrostomy tube. The exam demonstrates opacification of the gastric lumen. No extravasation. IMPRESSION: 1. Confirmation of gastrostomy tube within the gastric lumen
--- NOTE | 2016-05-01 15:58 | Operative Report ---
GASTROINTESTINAL CONSULTATION NAME OF PROCEDURE: G-tube change. REFERRING PHYSICIAN: Dr. Weiss. REASON FOR PROCEDURE: Malfunctioning G-tube, dysphagia. PREOPERATIVE DIAGNOSES: Malfunctioning G-tube, dysphagia. POSTOPERATIVE DIAGNOSES: New 20-Ind[place]ian gastrostomy tube placed. DESCRIPTION OF PROCEDURE: The patient was placed on her back. The old G-tube was identified. It was removed after deflating the balloon and removing it, a new 20-Ind[place]ian gastrostomy tube was ____. The tip inserted through the gastrocutaneous fistula entering into stomach lumen. Internal balloon was inflated with 15 mL of sterile saline. Outer flange was secured in position. Procedure was then completed. COMPLICATIONS: None. FINDINGS: New 20-Ind[place]ian gastrostomy tube placed. RECOMMENDATIONS: 1. KUB Gastrografin confirmed placement. 2. If it is in stomach, may begin using it. 3. Check residual every 6 hours and hold greater than 100 mL Thank you for allowing me to participate. Please call me if any questions. JOB# [id number]
--- NOTE | 2016-05-02 06:26 | Progress Notes ---
PROBLEM LIST: 1.Acute respiratory failure, improving, out and off ventilator. 2.Lot of upper airway secretory noise. 3.Metabolic syndrome with obesity, obesity hypoventilation syndrome, also history of left sided at effusion, questionable infiltrate. SYMPTOMS: Nil. He is arousable, no respiratory distress, has some secretory noise, etc. PHYSICAL EXAMINATION: VITAL SIGNS: Temperature is 98.6, blood pressure is 142/74, saturation 95. ENT: Shows no new changes. CHEST: Shows diminished air entry with some secretory noise. HEART: Regular. EXTREMITIES: Shows no peripheral edema. LABORATORY DATA: The patient's white count is 4.1, hemoglobin 7.8, ABG looks okay on currently 3 liters per minute. ASSESSMENT: The patient clinically overall better, has a problem with ____, mostly upper airway with the left sided effusion. PLANS AND SUGGESTIONS: We will repeat chest x-ray, okay to get him to the step down. We will discuss with ____ for aggressive suctioning, especially in upper airway and go from there. JOB# [id number]
[2016-05-02] MEDS: INSULIN ASPART SLIDING SCALE 100 UNITS/ML UNIT SUBQ SCH ×4 (06:50→22:05)
[2016-05-02 07:28] LABS: HEMOGLOBIN 8.9 gm/dL (12.6-17.4); MEAN CELL VOLUME 82.6 fl (80-99); MEAN CORPUSCULAR HEMOGLOBIN 27.6 pg (27.0-31.0); MEAN CORPUSCULAR HGB CONC 33.5 pg (28.0-36.0); MEAN PLATELET VOLUME 11.5 fl; RED BLOOD COUNT 3.21 Mil/cmm (3.80-5.80); RED CELL DISTRIBUTION WIDTH 16.1 % (11.5-20.0); WHITE BLOOD COUNT 4.4 Th/cmm (4.8-10.8)
[2016-05-02 07:47] LABS: ALB/GLOB RATIO 0.6 (1.0-1.8); ALKALINE PHOSPHATASE 90 U/L (34-104); ANION GAP 4.7 (7.0-16.0); BILIRUBIN,TOTAL 0.5 mg/dL (0.3-1.0); BUN - UREA NITROGEN 27 mg/dL (7-25); BUN/CREATININE RATIO 24.5; CALCIUM SERUM 7.8 mg/dL (8.6-10.3); CARBON DIOXIDE 28.9 mEq/L (21.0-31.0); CHLORIDE 119 mEq/L (98-107); CREATININE - SERUM 1.1 mg/dL (0.7-1.3); GLUCOSE 110 mg/dL (70-105); HEMATOCRIT 26.5 % (39.0-49.0); PLATELET COUNT 141 Th/cmm (150-400); POTASSIUM SERUM 3.6 mEq/L (3.5-5.1); SGOT 32 U/L (13-39); SGPT/ALT 34 U/L (7-52); SODIUM SERUM 149 mEq/L (136-145)
[2016-05-02] MEDS: Albuterol/Ipratropium Neb 3 ML AERS HHN PRN ×2 (07:49→11:54)
[2016-05-02 08:40] LABS: BAND NEUTROPHILE 2 % (0-10); BASOPHIL 2 % (0-3); EOSINOPHIL 1 % (0-5); NEUTROPHILS 67 % (40-80); TOTAL CELLS COUNTED 100
[2016-05-02 08:41] LABS: ANISOCYTOSIS 1+; PLATELET ESTIMATE DECREASED PLATELETS (NORMAL); PLATELET MORPHOLOGY GIANT PLATELETS SEEN (NORMAL); POLYCHROMASIA 1+
--- NOTE | 2016-05-02 09:36 | Infectious Disease Prog Note ---
Infectious Disease Subjective - Review of Systems Service Date: 05/02/16 Subjective: Doing well. remains confused. Able to open his eyes spontaneously. Infectious Disease Objective - Results Result Diagrams: 05/02/16 06:20 05/02/16 06:20 Recent Labs: Laboratory Last Values WBC 4.4 Th/cmm (4.8-10.8) L 05/02/16 06:20 RBC 3.21 Mil/cmm (3.80-5.80) L 05/02/16 06:20 Hgb 8.9 gm/dL (12.6-17.4) L 05/02/16 06:20 Hct 26.5 % (39.0-49.0) L D 05/02/16 06:20 MCV 82.6 fl (80-99) 05/02/16 06:20 MCH 27.6 pg (27.0-31.0) 05/02/16 06:20 MCHC Differential 33.5 pg (28.0-36.0) 05/02/16 06:20 RDW 16.1 % (11.5-20.0) 05/02/16 06:20 Plt Count 141 Th/cmm (150-400) L D 05/02/16 06:20 MPV 11.5 fl 05/02/16 06:20 Neutrophils % 77.6 % (40.0-80.0) 04/29/16 07:03 Band Neutrophils % 2 % (0-10) 05/02/16 06:20 Lymphocytes % 12.2 % (20.0-50.0) L 04/29/16 07:03 Monocytes % 6.6 % (2.0-10.0) 04/29/16 07:03 Eosinophils % 3.5 % (0.0-5.0) 04/29/16 07:03 Basophils % 0.1 % (0.0-2.0) 04/29/16 07:03 Neutrophils (Manual) 67 % (40-80) 05/02/16 06:20 Lymphocytes 19 % (20-50) L 05/02/16 06:20 Monocytes 9 % (2-10) 05/02/16 06:20 Eosinophils 1 % (0-5) 05/02/16 06:20 Basophils 2 % (0-3) 05/02/16 06:20 Atypical Lymphocytes 1 % 04/28/16 04:36 Platelet Estimate DECREASED PLATELETS (NORMAL) 05/02/16 06:20 Platelet Morphology GIANT PLATELETS SEEN (NORMAL) 05/02/16 06:20 Polychromasia 1+ 05/02/16 06:20 Anisocytosis 1+ 05/02/16 06:20 RBC Morph Micro Appear ABNORMAL (NORMAL) 05/02/16 06:20 Plt Count 83 Th/cmm (150-400) L 04/27/16 04:38 PT 10.2 SECONDS (9.5-11.5) 04/27/16 04:38 INR 1.03 (0.5-1.4) 04/27/16 04:38 PTT (Actin FS) 36.4 SECONDS (26.0-38.0) 04/27/16 04:38 Fibrinogen 483.0 mg/dL (200.0-400.0) H 04/27/16 04:38 D-Dimer 3960 ng/mL (100-400) H 04/27/16 04:38 Specimen Source Arterial 05/01/16 08:36 Sample Site Left Radial 05/01/16 08:36 pH 7.39 (7.35-7.45) 05/01/16 08:36 pCO2 47.0 mmHg (35.0-45.0) H 05/01/16 08:36 pO2 87.0 mmHg (80.0-100.0) 05/01/16 08:36 HCO3 28.5 mmol/L (20.0-26.0) H 05/01/16 08:36 Base Excess 2.8 mmol/L (-3.0-3.0) 05/01/16 08:36 O2 Saturation 97.0 % (92.0-100.0) 05/01/16 08:36 Paul Test Positive 05/01/16 08:36 Vent Rate NA 05/01/16 08:36 Inspired O2 32 05/01/16 08:36 Tidal Volume NA 05/01/16 08:36 PEEP NA 05/01/16 08:36 Pressure (ins/psv/peep) NA 05/01/16 08:36 Critical Value LZHANG 05/01/16 08:36 Sodium 149 mEq/L (136-145) H 05/02/16 06:20 Potassium 3.6 mEq/L (3.5-5.1) 05/02/16 06:20 Chloride 119 mEq/L (98-107) H 05/02/16 06:20 Carbon Dioxide 28.9 mEq/L (21.0-31.0) 05/02/16 06:20 Anion Gap 4.7 (7.0-16.0) L 05/02/16 06:20 BUN 27 mg/dL (7-25) H 05/02/16 06:20 Creatinine 1.1 mg/dL (0.7-1.3) 05/02/16 06:20 Est GFR ( Amer) TNP 05/02/16 06:20 Est GFR (Non-Af Amer) TNP 05/02/16 06:20 BUN/Creatinine Ratio 24.5 05/02/16 06:20 Glucose 110 mg/dL (70-105) H 05/02/16 06:20 POC Glucose 107 MG/DL (70 - 105) H 05/02/16 06:10 Hemoglobin A1c % 6.0 % (4.0-6.0) 04/25/16 20:15 Whole Bld Lactic Acid 1.86 mmol/L (0.60-2.00) 04/25/16 20:15 Calcium 7.8 mg/dL (8.6-10.3) L 05/02/16 06:20 Phosphorus 3.7 mg/dL (2.5-5.0) 04/27/16 04:38 Magnesium 2.7 mg/dL (1.9-2.7) 04/28/16 04:36 Total Bilirubin 0.5 mg/dL (0.3-1.0) 05/02/16 06:20 Direct Bilirubin 0.27 mg/dL (0.0-0.2) H 04/27/16 04:38 AST 32 U/L (13-39) 05/02/16 06:20 ALT 34 U/L (7-52) 05/02/16 06:20 Alkaline Phosphatase 90 U/L (34-104) 05/02/16 06:20 Troponin I 0.07 ng/mL (0.01-0.05) H* D 04/26/16 15:00 Total Protein 6.7 gm/dL (6.0-8.3) 05/02/16 06:20 Albumin 2.6 gm/dL (4.2-5.5) L 05/02/16 06:20 Globulin 4.1 gm/dL 05/02/16 06:20 Albumin/Globulin Ratio 0.6 (1.0-1.8) L 05/02/16 06:20 TSH 3.66 uIU/ml (0.34-5.60) 04/27/16 04:38 Urine Source CATH 04/25/16 20:55 Urine Color ORANGE 04/25/16 20:55 Urine Clarity HAZY (CLEAR) 04/25/16 20:55 Urine pH 5.0 04/25/16 20:55 Ur Specific [place] 1.11125 (1.005-1.030) H 04/25/16 20:55 Urine Protein 30 mg/dL (NEGATIVE) H 04/25/16 20:55 Urine Glucose (UA) NEGATIVE mg/dL (NEGATIVE) 04/25/16 20:55 Urine Ketones 15 mg/dL (NEGATIVE) H 04/25/16 20:55 Urine Blood NEGATIVE (NEGATIVE) 04/25/16 20:55 Urine Nitrate NEGATIVE (NEGATIVE) 04/25/16 20:55 Urine Bilirubin NEGATIVE (NEGATIVE) 04/25/16 20:55 Urine Urobilinogen 1.0 E.U./dL (0.2 - 1.0) 04/25/16 20:55 Ur Leukocyte Esterase NEGATIVE (NEGATIVE) 04/25/16 20:55 Urine RBC 0-2 /hpf (0-5) H 04/25/16 20:55 Urine WBC 2-5 /hpf (0-5) H 04/25/16 20:55 Ur Epithelial Cells FEW /lpf (FEW) 04/25/16 20:55 Uric Acid Crystals FEW /hpf (NONE SEEN) 04/25/16 20:55 Amorphous Sediment MODERATE URATES (NONE SEEN) 04/25/16 20:55 Urine Bacteria FEW /hpf (NONE SEEN) 04/25/16 20:55 Stool Occult Blood POSITIVE (NEGATIVE) 05/01/16 18:30 Random Vancomycin 20.3 ug/mL (5.0-40.0) 05/02/16 06:20 Blood Type O POSITIVE 04/30/16 09:40 Antibody Screen NEGATIVE 04/30/16 09:40 Crossmatch See Detail 04/30/16 09:40 - Physical Exam Vitals and I&O: Vital Signs Temp 98.6 F 05/02/16 04:00 Pulse 85 05/02/16 07:35 Resp 20 05/02/16 08:02 BP 140/68 05/02/16 04:00 Pulse Ox 97 05/02/16 07:35 Intake & Output 05/01/16 05/02/16 05/02/16 18:59 06:59 18:59 Intake Total 1000 750 Output Total 2500 1700 Balance -1500 -950 Intake: Intake, IV Amount 600 Sodium Ferric Gluconate 100 125 mg In Sodium Chloride 0.9% 100 ml @ 100 mls/hr IV Q24HR [facility] Rx#: [id number] Vancomycin HCl 1.5 gm In 500 Sodium Chloride 0.9% 500 ml @ 250 mls/hr IV ONCE ONE Rx#:[id number] Oral 0 Tube Feeding 300 750 Other 100 Output: Urine 2500 1700 Other: # Bowel Movements 0 3 Stool Characteristics Liquid Active Medications: Current Medications Albuterol/Ipratropium (Duoneb Neb) 3 ml HHN Q2H PRN PRN Reason: Respiratory Distress Stop: 06/24/16 22:45 Last Admin: 05/02/16 07:49 Dose: 3 ml Enoxaparin Sodium (Lovenox) 30 mg SUBQ DAILY [facility] Stop: 06/25/16 08:59 Last Admin: 05/01/16 08:59 Dose: 30 mg Epoetin [place] (Epogen) 5,000 units SUBQ MoWeFr [facility] Stop: 06/30/16 09:59 Last Admin: 05/01/16 10:50 Dose: 5,000 units Famotidine (Pepcid) 20 mg IVP Q12H JJ Stop: 06/26/16 08:59 Last Admin: 05/01/16 22:08 Dose: 20 mg Glycopyrrolate (Robinul) 1 mg PO BID [facility] Stop: 06/30/16 08:59 Last Admin: 05/01/16 16:35 Dose: 1 mg Ceftriaxone Sodium 1 gm/ (Dextrose) 50 mls @ 100 mls/hr IV Q24H [facility] Stop: 06/27/16 20:59 Last Admin: 05/01/16 22:07 Dose: 100 mls/hr Ferric Sodium Gluconate Complex 125 mg/ Sodium Chloride 110 mls @ 100 mls/hr IV Q24HR [facility] Stop: 05/11/16 09:59 Last Infusion: 05/01/16 11:50 Dose: 100 mls/hr Dextrose/Sodium Chloride (D5-0.45ns) 1,000 mls @ 50 mls/hr IV .Q20H JJ Stop: 06/30/16 08:44 Last Admin: 05/01/16 09:29 Dose: 50 mls/hr Vancomycin HCl 1.25 gm/ Sodium (Chloride) 250 mls @ 165 mls/hr IV Q24H JJ Stop: 07/01/16 08:59 Insulin Aspart (Novolog Insulin Sliding Scale) 0 units SUBQ ACHS JJ PRN Reason: Protocol Stop: 06/25/16 07:29 Last Admin: 05/02/16 06:50 Dose: Not Given Lactobacillus Rhamnosus (Culturelle) 1 each PO DAILY JJ Stop: 06/26/16 08:59 Last Admin: 05/01/16 09:03 Dose: Not Given Lorazepam (Ativan) 2 mg IVP Q4HR PRN; Protocol PRN Reason: Agitation Stop: 06/24/16 22:38 Miscellaneous (Clinical Monitoring) 1 ea PRN PRN PRN Reason: RENAL DOSING Stop: 06/25/16 07:52 Miscellaneous (Vte Chemical Prophylaxis Screen/ Admission) 1 ea PRN PRN PRN Reason: PROTOCOL Stop: 06/25/16 09:54 Miscellaneous (Probiotic Screen) 1 ea PRN PRN PRN Reason: PROTOCOL Stop: 06/26/16 08:29 Miscellaneous (Vancomycin Iv Per Pharmacy) 1 ea PRN PRN PRN Reason: VANCOMYCIN Stop: 07/01/16 07:58 Wound Care/Dressing Products ([place]rahoney) 1 appl TP DAILY JJ Stop: 06/26/16 08:59 Last Admin: 05/01/16 09:03 Dose: 1 appl General: no acute distress, well developed, well nourished HEENT: atraumatic, normocephalic, PERRLA, EOMI Neck: supple Cardiovascular: S1S2, regular Lungs: clear to auscultation bilaterally, clear to percussion Abdomen: soft, no tender, no distended Extremities: other (b/l foot ulcers.), no cyanosis, no clubbing, no edema Neurological: awake, other (consfused) - Procedures Procedures: Procedures Procedure Code Date BLOOD TRANSFUSION SERVICE 45282 05/04/15 INSERT EMERGENCY AIRWAY 88963 04/25/16 INSERTION OF ENDOTRACHEAL AIRWAY INTO TRACHEA, VIA OPENING [id number] 04/25/16 RESPIRATORY VENTILATION, 24-96 CONSECUTIVE HOURS [id number] 04/25/16 TRANSFUSE NONAUT RED BLOOD CELLS IN PERIPH VEIN, PERC [id number] 05/04/15 VENT MGMT INPAT INIT DAY 04/25/16 VENT MGMT INPAT SUBQ DAY 04/25/16 Infectious Disease Assmt/Plan - Problem List Patient Problems: All Active Problems Anemia (Acute) D64.9 Dehydration (Acute) E86.0 Hyperosmolality and hypernatremia (Acute) E87.0 - Assessment Assessment: 1. CN staph sepsis. 2. Sepsis resolved. 3. Pneumonia. 4. Acute renal failure likely secondary to dehydration. 5. Increased respiratory failure, on ventilator. 6. Anemia. 7. Dementia. 8. Cerebrovascular accident. 9. Hypernatremia. 10.Thrombocytopenia. 11.Foot ulcers. 12.Protein calorie malnutrition. 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 14. Thrombocytopenia. Resolved. - Plan Plan: Continue vanco IV and Rocephin for two weeks, total.
[2016-05-02] MEDS: Enoxaparin 30 mg/0.3 mL 0.3mL Syr SUBQ SCH (09:56)
[2016-05-02] MEDS: D5-0.45NS 1,000 ML IV SCH (09:57)
[2016-05-02] MEDS: Lactobacillus Rhamnosus 10 Billion CFU Capsule PO SCH (09:58)
[2016-05-02] MEDS: Therahoney Gel 42.5gm Tube TP SCH (09:58)
--- NOTE | 2016-05-02 10:34 | Consultation ---
INPATIENT GASTROINTESTINAL CONSULTATION REFERRING PHYSICIAN: Dr. Weiss. REASON FOR CONSULTATION: Malfunctioning G-tube. HISTORY OF PRESENT ILLNESS: This is an 85-year-old male resident of a skilled facility with underlying dementia, poor historian, brought to the hospital and was being treated for respiratory distress. The patient has a G-tube that is the balloon type and is malfunctioning because it is cracked, and we are asked to see the patient to replace it. The patient again is a poor historian. PAST MEDICAL HISTORY: Peripheral vascular disease, anemia, dementia, dysphagia, pneumonia, and hypertension. PAST SURGICAL HISTORY: PEG tube placement in the past. FAMILY HISTORY: Noncontributory. SOCIAL HISTORY: Resident of skilled facility. ALLERGIES: None. MEDICATIONS: Ceftriaxone, Lovenox, Epogen, Pepcid, iron, Robinul, insulin, Ativan, and vancomycin. REVIEW OF SYSTEMS: Unobtainable. PHYSICAL EXAMINATION: VITAL SIGNS: Temperature 97.2, breathing 21, pulse of 78, and blood pressure 127/50. GENERAL: No apparent distress. EYES: Anicteric, normal conjunctivae. HEENT: Normocephalic and atraumatic. Moist mucous membranes. CHEST: Coarse breath sounds. CARDIOVASCULAR: Regular rate and rhythm. ABDOMEN: Soft, nontender, and nondistended with a G-tube that appears to be broken. SKIN: Warm and dry. EXTREMITIES: Reveal no cyanosis. PSYCHOLOGIC: Awake. LABORATORY DATA: Show white count of 4.1, hemoglobin 7.8, and platelets 108,000. IMPRESSION: This is an 85-year-old male with malfunctioning G-tube and dysphagia. We will need to have a G-tube change. The hemoglobin is low, but no obvious signs of gastrointestinal bleeding at this time. It could be from underlying chronic illness and a component of anemia of chronic disease. PLAN: 1. G-tube to be changed. 2. Follow H and H. 3. Transfuse as needed. 4. Watch for any GI bleeding. Notify us if this is the case. 5. Consider stool OB. Thank you for allowing me to participate. Please call me if you have any questions. JOB# [id number]
[2016-05-02] MEDS: Sodium Ferric Gluconate 125 MG in Sodium Chloride 0.9% 100 ML IV SCH (11:00)
--- NOTE | 2016-05-02 11:04 | Diagnostic Imaging Report ---
Portable chest x-ray HISTORY: Shortness of breath Compared to prior exam of May 01, 2016, the heart remains enlarged. Evidence of a left pleural effusion and diffuse infiltrate within the left lung. IMPRESSION: 1. No change in the cardiopulmonary status as noted above. The findings may be associated with congestive heart failure. Pneumonia within the left lung cannot be excluded. Clinical correlation is needed.
--- NOTE | 2016-05-03 01:43 | Progress Notes ---
PULMONARY PROGRESS NOTE PROBLEM LIST: 1. Acute respiratory failure, status post extubation. 2. Difficulty in mobilizing tracheobronchitis secretions with metabolic syndrome. 3. Left-sided pneumonia and effusion. 4. Significant morbid obesity. SYMPTOMS: Nil. Not communicative. Has lot of upper airway secretory noise, but specifically no other clinical findings. PHYSICAL EXAMINATION: VITAL SIGNS: The patient's temperature is 99.3, blood pressure 142/52, saturation 90%-96% on 2 liters of oxygen. NECK: Veins not visualized. CHEST: Shows lot of secretory noise with diminished air entry in the left base. HEART: Regular. LABORATORY DATA: White count is 4.4, hemoglobin 8.9. Electrolytes: Sodium is 149, creatinine is 1.1, and BUN is 27. ASSESSMENT: The patient is clinically not much changed. Unfortunately because of labile mental status, has a poor ability to mobilize tracheobronchitis secretions. PLANS AND SUGGESTIONS: We will add some bicarb to current treatment. We will have ____ frequent suctioning. We will follow up with chest x-ray and/or possibly a CAT scan and see how it is on the left side, besides pneumonia, seems to have some effusion as well. JOB# [id number]
[2016-05-03 05:33] LABS: % BASOPHILS 0.4 % (0.0-2.0); % EOSINOPHILS 3.3 % (0.0-5.0); % LYMPHOCYTES 14.8 % (20.0-50.0); % MONOCYTES 6.4 % (2.0-10.0); % NEUTROPHILS 75.1 % (40.0-80.0); HEMATOCRIT 26.5 % (39.0-49.0); HEMOGLOBIN 8.8 gm/dL (12.6-17.4); MEAN CELL VOLUME 83.4 fl (80-99); MEAN CORPUSCULAR HEMOGLOBIN 27.8 pg (27.0-31.0); MEAN CORPUSCULAR HGB CONC 33.3 pg (28.0-36.0); MEAN PLATELET VOLUME 10.8 fl; NEUTROPHILE ABSOLUTE 2.9 Th/cmm (1.8-8.0); PLATELET COUNT 153 Th/cmm (150-400); RED BLOOD COUNT 3.18 Mil/cmm (3.80-5.80); RED CELL DISTRIBUTION WIDTH 16.7 % (11.5-20.0); WHITE BLOOD COUNT 3.8 Th/cmm (4.8-10.8)
[2016-05-03 06:03] LABS: ALB/GLOB RATIO 0.6 (1.0-1.8); ALKALINE PHOSPHATASE 92 U/L (34-104); ANION GAP 7.8 (7.0-16.0); BILIRUBIN,TOTAL 0.3 mg/dL (0.3-1.0); BUN - UREA NITROGEN 24 mg/dL (7-25); CALCIUM SERUM 7.8 mg/dL (8.6-10.3); CHLORIDE 114 mEq/L (98-107); GLUCOSE 129 mg/dL (70-105); POTASSIUM SERUM 3.8 mEq/L (3.5-5.1); SGOT 29 U/L (13-39); SGPT/ALT 28 U/L (7-52); SODIUM SERUM 149 mEq/L (136-145)
[2016-05-03] MEDS: INSULIN ASPART SLIDING SCALE 100 UNITS/ML UNIT SUBQ SCH (06:40)
[2016-05-03] MEDS: Enoxaparin 30 mg/0.3 mL 0.3mL Syr SUBQ SCH (08:52)
[2016-05-03] MEDS: Lactobacillus Rhamnosus 10 Billion CFU Capsule PO SCH (08:53)
[2016-05-03] MEDS: Therahoney Gel 42.5gm Tube TP SCH (08:54)
[2016-05-03] MEDS: Epoetin Alfa 20000 Units/mL Vial SUBQ SCH (10:27)
[2016-05-03] MEDS: Sodium Ferric Gluconate 125 MG in Sodium Chloride 0.9% 100 ML IV SCH (11:12)
[2016-05-03] MEDS: Albuterol/Ipratropium Neb 3 ML AERS HHN PRN (11:22)
--- NOTE | 2016-05-03 18:49 | Discharge Summary ---
PRINCIPAL DIAGNOSES: 1. Hypernatremia. 2. Acute kidney injury, resolved at the time of discharge. 3. Acute respiratory failure, required endotracheal intubation, mechanical ventilation. 4. Left-sided pneumonia, most likely retirement acquired with possibility of aspiration. 5. Multiple deep-issue injuries on the feet with stage 3 ulcers on the foot. 6. Dementia. 7. Status post gastrostomy tube placement. 8. Protein-calorie malnutrition. 9. Thrombocytopenia secondary to disseminated intravascular coagulation. 10. 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 11. Degenerative joint disease. 12. Encephalopathy. BRIEF STATEMENT FOR THE REASON FOR ADMISSION: This is an 85-year-old [place] male who was a resident of retirement, presented to Emergency Room for evaluation of cough, congestion, and shortness of breath. When the patient arrived in the Emergency Room, the patient was noted to have multiorgan failure. The patient was intubated and subsequently admitted to ICU. Please refer to my dictated medical H and P for further information. HOSPITAL COURSE: The patient was admitted to ICU. Nephrology, Pulmonary, and ID consultation requested. Broad-spectrum antibiotic was started. Blood cultures were also obtained along with sputum Gram stain and CASTING CARRIER. Sputum Gram stain revealed the patient had a proteus mirabilis. DIC panel was also followed. GI and DVT prophylaxis was given. Free water was also given along with D5W to correct the hypernatremia. Followup labs were done along with the followup recommendations. Cardiac enzymes were done, which were negative for acute myocardial infarction. Tube feeding was continued. The patient continues to improve slowly with the treatment plan prescribed by myself and legal consultant. The patient's renal failure continues to improve as well. The patient was extubated in ICU and subsequently transferred to the lower level of care where the patients were kept until the patients were discharged. The patient was also noted to have significant anemia which required blood transfusion as well. Once the infections are uncontrolled, the patient will have thrombocytopenia resolved. The patient did have resolution of acute kidney injury and his creatinine at the time of discharge is 1.0. The patient needed to have a total of 2 weeks of antibiotic with frequent suctioning and wound care. The patient is discharged today to retirement with continuation of current treatment plan as the patient is receiving. The patient will be getting 2 weeks of antibiotic in retirement along with currently prescribed medications. The patient will be followed by his primary care physicians at facility. During the stay in the hospital, the patient did have a malfunctioning of the G-tube which was also replaced by barber shop operator. JOB# [id number]
--- NOTE | 2016-05-04 05:51 | Progress Notes ---
PROBLEM LIST: 1. Status post respiratory failure. 2. Left-sided pneumonia effusion. 3. Metabolic syndrome with poor ability to mobilize tracheobronchial secretions. SYMPTOMS: Noncommunicative, awake, still has a lot of upper airway secretory noise, but otherwise unremarkable and the patient is currently on a nasal O2 saturating okay. PHYSICAL EXAMINATION: VITAL SIGNS: Temperature is 100.7, blood pressure 143/70, ____pulse 52, saturation is 95% on 3 liters of oxygen. NECK: Veins could not be visualized. CHEST: Shows scattered rhonchi with generalized diminished air entry. HEART: Regular. ABDOMEN: Soft, nontender. CT of the chest pending. LABORATORY DATA: The patient's white count of 3.8, hemoglobin 8.8, sodium is 149 and patient's calcium is low with glucose was 129. ASSESSMENT: The patient is clinically status quo, continuity of bronchorrhea, poor ability to mobilize ____ secretions. PLANS AND SUGGESTIONS: We will go ahead and continue current treatment. Await for the CT of the chest, etc., and go from there. JOB# [id number]
== END 2016-05-03 11:55 | DRG 720 ==
LOC: ER 19:28 → ICU 22:25 → TELE 05-01 18:30
PROVIDERS: ADMIT Internal Medicine; ATTEND Internal Medicine
PROC: 0BH17EZ Insertion of Endotracheal Airway into Trachea, Via Natural or Artificial Opening (ICD-10-PCS; principal; 2016-04-26)
PROC: 5A1945Z Respiratory Ventilation, 24-96 Consecutive Hours (ICD-10-PCS; 2016-04-26)
PROC: 30233N1 Transfusion of Nonautologous Red Blood Cells into Peripheral Vein, Percutaneous Approach (ICD-10-PCS; 2016-04-30)
PROC: 0DP6XUZ Removal of Feeding Device from Stomach, External Approach (ICD-10-PCS; 2016-05-01)
PROC: 0DH63UZ Insertion of Feeding Device into Stomach, Percutaneous Approach (ICD-10-PCS; 2016-05-01)
DX: A41.2 Sepsis due to unspecified staphylococcus (principal); J96.00 Acute respiratory failure, unspecified whether with hypoxia or hypercapnia; D65 Disseminated intravascular coagulation [defibrination syndrome]; J69.0 Pneumonitis due to inhalation of food and vomit; R65.21 Severe sepsis with septic shock; G93.40 Encephalopathy, unspecified; N17.9 Acute kidney failure, unspecified; E87.0 Hyperosmolality and hypernatremia; K94.23 Gastrostomy malfunction; Z99.11 Dependence on respirator [ventilator] status; E46 Unspecified protein-calorie malnutrition; R53.2 Functional quadriplegia; F03.90 Unspecified dementia, unspecified severity, without behavioral disturbance, psychotic disturbance, mood disturbance, and anxiety; I73.9 Peripheral vascular disease, unspecified; I69.321 Dysphasia following cerebral infarction; D61.818 Other pancytopenia; Y83.8 Other surgical procedures as the cause of abnormal reaction of the patient, or of later complication, without mention of misadventure at the time of the procedure; Y92.89 Other specified places as the place of occurrence of the external cause; M19.90 Unspecified osteoarthritis, unspecified site; R73.9 Hyperglycemia, unspecified; I69.320 Aphasia following cerebral infarction; G47.33 Obstructive sleep apnea (adult) (pediatric); E88.81 Metabolic syndrome and other insulin resistance; E66.2 Morbid (severe) obesity with alveolar hypoventilation; L89.893 Pressure ulcer of other site, stage 3; Z68.25 Body mass index [BMI] 25.0-25.9, adult
CPT/HCPCS: 36415-UA; 36600-90; 71010-TC; 71250-TC; 76770-TC; 80053-TC; 80076-TC; 80202-TC; 81001-TC; 82270-TC; 82803-TC; 82948-90; 83036-90; 83605; 83735-TC; 84100-TC; 84443-TC; 84484-TC; 85007-TC; 85025-TC; 85027-TC; 85049-TC; 85379-TC; 85384-TC; 85610-TC; 85730-TC; 86850-TC; 86900-TC; 86901-TC; 86922-TC; 87070; 93005; 93925-TC; 94002; 94003; 94640; 94660; 94760; 96375; 99201; C9113; J0696; J0885; J1650; J1815; J1956; J2060; J2250; J2543; J2916; J3370; J3490; J7030; J7040; J7070; P9016; P9045; Z7502; Z7610